=== PATIENT | female | born 1970 | race Caucasian/White ===

== ENCOUNTER 2018-12-07 12:34 | Inpatient (IN) | payer BC, SELFPAY ==
--- NOTE | 2018-11-28 18:15 | HP.PCM_ITS ---
History and Physical Date of Admission: 12/07/18 Pre-Op History and Physical ? HPI: The patient is a 48 year old female presenting for pre-operative visit. She is scheduled for , for?TLH, bilateral salpignectomy, cystoscopy, possible lysis of adhesions, possible laparatomy on?12/07/18. ??Procedure discussed along with risks, benefits and complications. ?Other alternatives discussed for management. Consent form signed??Yes.? PAST?MEDICAL?HISTORY PAST MEDICAL HISTORY Diagnosis Date ? Acute gastritis without mention of hemorrhage ? ? Ankle fracture, right ? ? with 4 surgeries and fusion ? Anxiety ? ? Arthritis associated with another disorder ? ? Crohn's Disease, seeing Dr. Bunn-rheum, Dr. Gonzalez-pain mgmt ? Crohn disease (HCC) ? ? Seeing Dr. Pinedo ? Dysthymic disorder ? ? Depression (non-psychotic) ? Hypothyroidism ? ? Insomnia ? ? Migraines ? ? Obesity (BMI 30-39.9) ? ? Peptic ulcer, unspecified site, unspecified as acute or chronic, without mention of hemorrhage, perforation, or obstruction ? ? Psoriasis ? ? [facility] ? Regional enteritis of large intestine (HCC) 08/25 ? colectomy, and redo: ?ophth manifestation ? Vitamin D deficiency ? ? ? PAST?SURGICAL?HISTORY PAST SURGICAL HISTORY Procedure Laterality Date ? DELIVERY ONLY ? 1990 ? , low cervical ? DELIVERY ONLY ? 1994 ? , low cervical ? DELIVERY ONLY ? 1996 ? , low cervical ? EGD W/O BRSH SPECIMEN W/BX ? 03/27/2008 ? Gastric ulcers, deodenal adenoma ? FUSION OF ANKLE JOINT ? 2010 ? [facility] ? LAPAROSCOPIC CHOLEYCYSTECTOMY ? 2000 ? Cholecystectomy, lap ? LIGATE FALLOPIAN TUBE ? ? ? Tubal ligation ? PAST SURGICAL HISTORY OF ? 2000, 2001, 2008 ? multiple surgeries, eventual RIGHT ANKLE FUSION (post-traumatic) ? PROCTECTOMY,COMPL,COLECTOMY,BX'S ? 08/25 ? revision May 2001; reanastomosis 2001 - ileorectal ? SIGMOIDOSCOPY FLEX DIAG ? 2006 ? Normal or clean anastamosis ? THERMAL ENDOMETRIAL ABLATION ? 01/02/09 ? Novasure ? ? CURRENT?MEDICATIONS Current Outpatient Medications Medication Sig Dispense Refill ? esomeprazole (NEXIUM) 40 mg capsule TAKE ONE CAPSULE BY MOUTH EVERY DAY IN THE MORNING AT 6AM 90 capsule 3 ? ZOLMitriptan (ZOMIG) 2.5 mg tablet Take 1 tablet by mouth as needed. Take 1 tablet at onset of headache, repeat in 2 hours 6 tablet 3 ? venlafaxine ER (EFFEXOR XR) 150 mg 24 hr capsule Take 1 capsule by mouth once daily. 90 capsule 1 ? levothyroxine (SYNTHROID) 75 mcg tablet Take 1 tablet by mouth daily before breakfast. 30 tablet 2 ? ondansetron orally disintegrating (ZOFRAN ODT) 4 mg disintegrating tablet Take 1 tablet by mouth every 8 hours as needed. 20 tablet 3 ? inFLIXimab (REMICADE) 100 mg injection Inject 517.5 mg intravenously one time only for 1 dose. Infuse 7.5 mg/kg (adjusted weight) every 6 weeks. 500 mg 5 ? buPROPion XL (WELLBUTRIN XL) 300 mg 24 hr tablet Take 1 tablet by mouth once daily. 90 tablet 3 ? traZODone (DESYREL) 100 mg tablet TAKE 1/2 TO 1 TABLET BY MOUTH ONCE AT BEDTIME ? 3 ? clobetasol (TEMOVATE) 0.05 % cream APPLY 1 APPLICATION TO AFFECTED AREA TWICE DAILY. 30 g 1 ? HYDROcodone-Acetaminophen (NORCO) 10-325 mg per tablet Take 1 tablet by mouth every 8 hours as needed. ? ? ? No current facility-administered medications for this visit.? ? ALLERGIES:?Compazine [Prochlorperazine Edisylate]; Imitrex [Sumatriptan Succinate] ? PERSONAL HISTORY:? 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 FAMILY HISTORY:? FAMILY?HISTORY FAMILY HISTORY Problem Relation Age of Onset ? GI Mother ?hep C; from overdose, drug abuse ? Alcohol/Drug Mother ? from overdose ? GI Father ?hep C ? Hypertension Father ? ? Alcohol/Drug Father ? ? Coronary Artery Disease Maternal Grandmother ?open heart, no details known ? Alcohol/Drug Maternal Grandfather ? ? Hypertension Paternal Grandfather ? ? Coronary Artery Disease Paternal Grandfather ? age 62, many IN's prior to this ? REVIEW OF SYMPTOMS: GENERAL: denies fevers or chills ENDOCRINOLOGY: has not been on steroids Cardiology : denies palpitations or chest pain Respiratory: denies SOB or cough Hematology: denies history of prolonged bleeding or easy bruising or VTE Allergy: Denies history of personal or family history of allergy to anesthesia ? ? PELVIC EXAM FROM 08/29/18: :?external genitalia normal, normal Bartholin's glands, urethra, Shelbina's glands, no vulvar lesions, no cervical lesions, good vaginal support, physiologic discharge present, normal appearing perineal body and perianal region BIMANUAL:?small, mobile uterus, nontender, no adenexal masses or tenderness ? ?EMB- attempted 08/29/18- benign but limited, previous ablation ? ? Pelvic US 10/03/18: Report Summary: Overall impression: uterus normal size with globular appearing contour. endometrial thickness is 7.0mm. No endometrial lesions appreciated. Right and left ovary subvisualized no free fluid. Follow- up: f/u as clinically indicated. Indication: Menorrhagia. History: Last menstrual period: 09/24/2018. 10th day of cycle. Gynecological History: Past gynecological operations: ablation x2. Gynecological Ultrasonography: Uterus: normal, anteverted. Size: Longitudinal 81 mm. Anterio- posterior 46 mm. Transverse 51 mm. Volume: 99.5 ?ml. Fibroids: Fibroid 1: Size: 19 mm x 20 mm x 21 mm. Type: anterior. Position: mid-uterus. Endometrium: endometrium clearly visualized. Endometrium thickness total: 7.0 mm. Right Ovary: subvisualized. Left Ovary: subvisualized.? ? ? PHYSICAL EXAMINATION: ? VITALS:?Height 5' 1.25 (1.556 m), weight 218 lb (98.9 kg), last menstrual period 10/30/2018. ? GENERAL:??The patient is well nourished, well hydrated in no acute distress. ?, The patient is oriented to time, place, and person. NECK:?Supple. No lynphadenopathy, normal thyroid, no thyromegaly. LUNGS:?Clear to auscultation bilaterally. no wheezes, rhonchi or rales HEART:?Regular rate and rhythm, Normal heart sounds and No murmurs or gallops ? IMPRESSION:?menorrhagia, s/p endometrial ablation, dysmenorrhea ? PLAN:???The risks/benefits/alternatives and personal involved for the planned?TLH, bilateral salpingectomy, cystoscopy, possible lysis of adhesions and laparatomy (dr. Tao from general surgery on standby)?were reviewed with the patient. Her questions were answered to her satisfaction and she desires to proceed. ?Consent was signed. ?I reviewed with her postop instructions and expectations. ? ? I have reviewed and updated past medical and surgical history, medications and allergies? This H&P completed in my office 11/28/18 Amita Overton M.D.
[2018-12-07] VITALS (13 sets, daily range): BP systolic 85–135; BP diastolic 46–86; PULSE 68–99; RESP 16–18; TEMP 36.2–37.2; O2SAT 92–100; BMI 41.9; BMI 41.5
[2018-12-07 06:42] LABS: Hematocrit 35.6 % (37-47); Mean Corp Hgb Conc 30.9 g/gl (32-36); Mean Corpuscular Hgb 26.3 pg (27.0-32.0); Mean Platelet Vol. 9.2 fl (6.2-12.0); Platelet Count 348 K/mm3 (150-450); RBC Distribution Width CV 14.1 % (11.6-14.6); RBC Distribution Width SD 43.7 fl (35.1-43.9); Red Blood Count 4.19 M/mm3 (4.2-5.4); White Blood Count 5.9 K/mm3 (4.4-11.0)
[2018-12-07 06:43] LABS: Scan Indicated on CBC? Y/N NO
[2018-12-07 06:45] LABS: Bedside Glucose 183 mg/dL (70-110)
[2018-12-07] MEDS: Celecoxib 200 MG Capsule 400 MG PO (06:50)
[2018-12-07] MEDS: Gabapentin 600 MG Tablet PO (06:50)
[2018-12-07] MEDS: Acetaminophen 500 MG Tablet 1000 MG PO ×3 (06:51→23:06)
[2018-12-07] MEDS: Phenazopyridine 95 MG Tablet 190 MG PO (06:51)
[2018-12-07] MEDS: Scopolamine 1mg/72hr Patch 1 PATCH TRANSDERM. (06:52)
[2018-12-07] MEDS: Magnesium Sulfate 4gm/100mL 4 GM/100 ML IV.SOLN. IV (06:53)
[2018-12-07] MEDS: Lactated Ringers 1,000 ML 40 ML IV (06:53)
[2018-12-07] MEDS: Insulin Lispro 100 UNIT/ML INSULN.PEN SC (06:54)
[2018-12-07 06:59] LABS: Thyroid Stim Hormone (TSH) 1.57 uIU/mL (0.358-3.74)
[2018-12-07] MEDS: dexAMETHasone 10 MG/ML Vial 8 MG IV (07:46)
--- NOTE | 2018-12-07 08:00 | HYST_PTH ---
PATIENT: LÓPEZ DEMPSEY LOC: [facility]3 U#:[id number] AGE/SX: 48/F ROOM: MS312 RE12/07/[address]: Dr. Amita Overton MD : 1970 BED: 1 DIS: 12/08/2018 SPEC #: [id number] RECD: 12/07/18 12:42 STATUS: CANDACE RERobert #: [id number] SIVA: 12/07/18 08:[address]: Amita Overton DEPT: SURGICAL PATHOLOGY RECD BY: Lexa Christian ENTERED: 12/07/18 13:53 SP TYPE: HYSTERECT OTHR DR: Dr. Travis Washington MD Tissues: Uterus, NOS Procedures: Surgery Specimen Level V HEADER OPERATION: Laparoscopic hysterectomy, bilateral salpingectomy PRE-OP DIAGNOSIS: Menorrhagia, status post endometrial ablation, dysmenorrhoea TISSUE SUBMITTED: Uterus, cervix, bilateral fallopian tubes MICROSCOPIC DIAGNOSIS Uterus, hysterectomy: Cervix - nabothian cyst and minimal chronic inflammation. Endometrium - transition endometrium. Myometrium - adenomyosis. Right and left fallopian tubes - benign paratubal cysts. AM:nadeem 12/08/18 MICROSCOPIC DESCRIPTION Slides are reviewed. GROSS DESCRIPTION Received in fixative is one container labeled with the patient's name and designated uterus. The specimen consists of a uterus with detached cervix and one detached fallopian tube and portion of second detached fallopian tube. The uterus with cervix measures 8.5 x 6.5 x 4 cm and weighs 89 gm. The endocervical canal measures 3.5 cm in length. The ectocervix is oval and grossly unremarkable. The triangular endometrial cavity measures 3.5 x 2.8 cm. The endometrium measures up to 0.2 cm in thickness and light cole in color. The myometrium measures 2 cm in average thickness and is free of mass lesions. The longer fallopian tube segment measures 6 cm in length and 0.6 cm in average diameter and contains a normal appearing fimbriated end. The smaller fragment of fallopian tube measures 2 cm in length and 0.8 cm in average diameter. Manual Lathe Operator sections are submitted in eight cassettes as follows: 1 & 2 - cervix/endocervix, 3-6 - endometrium/myometrium, 7 - longer fallopian tube, 8 - smaller fallopian tube, sectioned and totally submitted. / AM:nadeem 12/07/18 TC:5 CPT: 64057
[2018-12-07] MEDS: Cefazolin 2 GM in 0.9% Normal Saline 100 ML IV (08:23)
--- NOTE | 2018-12-07 11:20 | PCM.OPRPT ---
Report of Operation Date of Procedure: 12/07/18 Pre-Operative Diagnosis: dysfunctional uterine bleeding, multiple previous abdominal surgeries including subtotal colectomy, concern for access and intraoperative adhesions Post-Operative Diagnosis: essentially bleeding, adhesions of loop of small bowel to abdominal midline and adhesions to uterus and ovaries Surgery/Procedure Performed:: laparoscopic access using an open technique-Conner trocar, laparoscopic lysis of adhesions teacher tutor: None Type of Anesthesia:: General Specimen's removed: per Dr. Overton Drains: per Dr. Overton Estimated Blood Loss (mL): per Dr. Chavez Description of Procedure: The patient was brought to the operating suite. Sign in was performed verifying patient, site, procedure, position, and DVT prophylaxis with SCDs. Following induction of general anesthetic, the patient was positioned by the gynecologic service for laparoscopic-assisted vaginal hysterectomy.. The patient?s abdomen was prepped and draped in the usual fashion. Timeout was performed verifying patient, site, position. Dr. Overton placed uterine manipulator. Following this- Local anesthetic was injected above the level of the umbilicus. Incision made and dissection carried down to the umbilical root fascia. through the umbilicus was grasped with the Victoria. 2 stay sutures were placed. Incision made in the fascia. dissection was further continued and the posterior fascial was grabbed with 2 Wanda's. Dissection was continued and the peritoneum entered under direct visualization. A 10 mm Conner trocar was inserted and secured with the stay sutures. Pneumoperitoneum to 15 mmHg was insufflated. 5mm ports were placed 2 on the left side one on the right side. Visual inspection revealed an adhesed loop of small bowel to the midline with relatively dense adhesions. Below this there was approximately estimated be a 6 x 8 cm incisional hernia. Laparoscopic lysis of adhesions were undertaken. the loop of small bowel was taken down carefully and sharply. There were noted to be significant adhesions betweenthen between the uterus and ovaries and the lower pelvic small bowel. These adhesions were taken down sharply and using electrocautery between the uterus and the ovary and fallopian tubes to the point that Dr. Overton was satisfied there was appropriate dissection to perform her procedure. the remainder of the case will be dictated by Dr. Overton.
[2018-12-07] MEDS: Bupivacaine Mpf 0.5% 30 ML VIAL (11:50)
[2018-12-07 12:36] LABS: Bedside Glucose 124 mg/dL (70-110)
[2018-12-07 15:13] LABS: Hematocrit 34.3 % (37-47); Hemoglobin 10.7 g/dl (12.0-15.0); Mean Corp Hgb Conc 31.2 g/gl (32-36); Mean Corpuscular Hgb 26.2 pg (27.0-32.0); Mean Corpuscular Volume 83.9 fL (81-99); Mean Platelet Vol. 9.2 fl (6.2-12.0); Platelet Count 348 K/mm3 (150-450); RBC Distribution Width CV 13.9 % (11.6-14.6); RBC Distribution Width SD 42.4 fl (35.1-43.9); Red Blood Count 4.09 M/mm3 (4.2-5.4); White Blood Count 15.3 K/mm3 (4.4-11.0)
[2018-12-07 15:14] LABS: Scan Indicated on CBC? Y/N NO
--- NOTE | 2018-12-07 15:28 | PCM.OPRPT ---
Report of Operation Date of Procedure: 12/07/18 Pre-Operative Diagnosis: Menorrhagia, suspected adenomyosis, history of previous bowel surgeries and suspected intraperitoneal adhesions Post-Operative Diagnosis: Menorrhagia, adenomyosis, adhesions of the bladder to the anterior lower uterine segment, extensive peritoneal adhesions Surgery/Procedure Performed:: Laparoscopic assisted vaginal hysterectomy with bilateral salpingectomy and cystoscopy. See Dr. Nazario's note for his portion of the surgery (lysis of adhesions) Description of Surgical Findings:: Adhesions of the small bowel to the anterior abdominal wall, midline lower abdominal wall hernia, boggy uterus. Normal cervix and vagina. Normal-appearing tubes with evidence of previous tubal ligation. Normal-appearing ovaries. Extensive adhesions to the uterus and of the left tube and ovary to bowel and sidewall. Some adhesions of the right ovary to the sidewall. Very dense extensive adhesions of the lower uterine segment to the bladder flap green material value added assessor: Marissa Golden Type of Anesthesia:: General Special Medications: None Specimen's removed: Uterus, cervix, bilateral tubes Drains: Florez Estimated Blood Loss (mL): 500 Fluids Replaced: 2200 Description of Procedure: the patient was taken to the operating room where she was prepped and draped in dorsal lithotomy position. Her legs are placed in the yellowfin stirrups. Her arms were tucked at her sides. The heavy vac was used to secure the patient in place. Care was taken to put gel pads and foam under all pressure points and the patient was in a neurologically safe in neutral position. A weighted speculum was placed in the vagina. The cervix was very high and anterior. The cervix was grasped with a tenaculum. I attempted to dilate the cervix and can only enter the cervix proximally 4 cm. I attempted to use a sound to even perforate the uterine fundus in order to allow deeper placement of the uterine manipulator, but I was unable to safely do so. At the uterine manipulator in the 4 cm and secured it to the cervix. The ELIESER cup uterine manipulator was used- small. A Florez had been placed to straight drain. Attention was then turned to the abdomen. Dr. Tao did an open technique to place a Conner trocar that was 10 mm 1 cm above the umbilicus. intraperitoneal placement was confirmed and the pneumoperitoneum was created. The patient was placed in Trendelenburg. 2 left-sided and one right sided lateral ports were placed under direct visualization without difficulty. The rapid insufflator was used. There are large amount of adhesions that were taken down by Dr. Tao. He will dictate his operative report separately. the round ligaments were identified, grasped with the LigaSure device, sealed and transected. The antimesenteric portions of the tube on both sides were identified, clamped, sealed and transected with the LigaSure device. The portions of the tubes were removed. The utero-ovarian ligaments were clamped, sealed, and transected. There was some backbleeding from the uterus. This was clamped and sealed to the best of our ability. There were some adhesions especially along the right side of the uterus, and these were taken down carefully. Attempt was then made to take down the very dense adhesions of the bladder flap and anterior peritoneum to the lower uterine segment. Blunt and sharp dissection were used. Monopolar cautery was used to take some of the adhesions down. The bladder was then backfilled to better define the planes. Some more dissection was performed. The bladder was drained and the remainder of the dissection was completed. When the bladder flap was down adequately, the uterine arteries were skeletonized, clamped, sealed and transected. At this point, I did not feel that we could adequately manipulate the uterus and visualize the cervicovaginal junction enough to safely make the colpotomy incision laparoscopically. Decision was made to proceed vaginally. Weighted speculum was placed in the vagina and the cervix is grasped with a tenaculum. The vaginal epithelium overlying the cervix was infiltrated with Xylocaine with dilute epinephrine solution. An incision was made around the cervix and the posterior colpotomy incision was made with Singh scissors. The peritoneum was tagged to the vaginal cuff and a long weighted speculum was placed in this area. The anterior colpotomy incision was then made. I then clamped, transected and suture ligated the uterosacral ligaments. a second pedicle of the lower portion of the cardinal ligament was clamped, transected and suture ligated. The vagina was very narrow and made manipulation difficult. At this point, part of the cervix evulsed. This is likely because of where we had done the dissection anteriorly had attenuated the tissue. because of the limited vaginal access, we had returned laparoscopically to finish taking down the rest of the cardinal ligament with the LigaSure device. There had been some significant back bleeding during this portion of the case adn from the vaginal cuff. The uterus was then removed vaginally without difficulty. The vaginal cuff was reapproximated in a horizontal fashion with interrupted 0 Vicryl [id number] sutures and was hemostatic. Care was taken to support the cuff to the uterosacral ligaments. a cystoscopy was then performed in the usual sterile fashion. The bladder was intact and both ureteral jets were noted. Attention was then turned abdominally one more time, and there is some generalized oozing in the vaginal cuff area. Several areas were clamped and sealed with the LigaSure device. However when we remove the LigaSure device seem to stick to the tissue somewhat and some oozing would continue. Most of the oozing was near the midline and there was concern of compromising the sutures or thermal injury to the bladder area. There were no actively bleeding vessels. Decision was made to put some FloSeal on the area and the peritoneum was tented over it and pressure held to the best of our ability for 2 minutes. At this point there was no active bleeding. the excess FloSeal was gently irrigated and suctioned off. The pelvis and peritoneal cavity were cleared of any clots and debris to the best of our ability. Kailey was placed over the remaining peritoneal surfaces, and the abdominal pressure was decreased to 8. At this pressure, there is no active bleeding through the Kailey or the FloSeal and hemostasis was assured. the laparoscopic instruments were removed. The pneumoperitoneum was released. The fascia in the midline and incision was closed with 0 Vicryl suture in a running fashion. The skin incisions were then closed by Dr. francisco well with Monocryl suture and skin glue. the vaginal instruments were removed by me and I perform the vaginal suite. I performed the remainder the procedure with assistance. Sponge and needle counts were correct and the patient was taken to the recovery room in stable condition. Grafts/Implants Used: none - Complications none - Admit VTE Documentation VTE Present on Admission: No VTE Mechan Device Prophylaxis: SCD's VTE Pharm Prophylaxis ordered?: Yes
[2018-12-07] MEDS: Ketorolac 30 MG/ML Syringe IV ×2 (15:39→23:06)
[2018-12-07] MEDS: oxyCODONE 5 MG Tablet PO (18:39)
--- NOTE | 2018-12-07 21:25 | NURSING ---
pt ambulating in hercules multiple times with gait steady. provided and encouraged gum chewing to pt.
[2018-12-07] MEDS: Docusate Sodium 100 MG Capsule PO (21:33)
[2018-12-07] MEDS: traZODone 50 MG Tablet PO (21:33)
[2018-12-07] MEDS: 0.9% NaCl Peripheral Flush Adult/Peds IV (23:06)
[2018-12-08] MEDS: oxyCODONE 5 MG Tablet PO ×2 (03:29→09:05)
[2018-12-08] MEDS: 0.9% NaCl Peripheral Flush Adult/Peds IV ×3 (03:30→12:07)
[2018-12-08 03:37] VITALS: BP 126/55; PULSE 87; RESP 16; TEMP 36.8; O2SAT 93
[2018-12-08] MEDS: Levothyroxine 75 MCG Tablet PO (05:19)
[2018-12-08] MEDS: Ketorolac 30 MG/ML Syringe IV ×2 (05:19→12:07)
[2018-12-08] MEDS: Acetaminophen 500 MG Tablet 1000 MG PO ×2 (05:19→12:08)
[2018-12-08 06:39] LABS: Hematocrit 31.7 % (37-47); Mean Corp Hgb Conc 31.5 g/gl (32-36); Mean Corpuscular Hgb 26.4 pg (27.0-32.0); Mean Corpuscular Volume 83.6 fL (81-99); Mean Platelet Vol. 9.7 fl (6.2-12.0); Platelet Count 374 K/mm3 (150-450); RBC Distribution Width CV 14.1 % (11.6-14.6); Red Blood Count 3.79 M/mm3 (4.2-5.4); White Blood Count 11.7 K/mm3 (4.4-11.0)
[2018-12-08 06:54] LABS: Scan Indicated on CBC? Y/N NO
--- NOTE | 2018-12-08 07:09 | PCM.PN.SRG ---
Subjective: few bowel sounds, no flatus - Physical Exam Abdomen: Soft, Hypoactive Bowel Sounds Vital Signs Temp Pulse Resp BP Pulse Ox 98.3 F 87 16 126/55 H 93 12/08/18 03:37 12/08/18 03:37 12/08/18 03:37 12/08/18 03:37 12/08/18 03:37 Oxygen Flow Rate (L/min) 6 Oxygen Delivery Method Room Air Weight: 100.698 kg Body Mass Index (BMI) 41.5 Intake and Output for Last 24 Hours 12/06/18 12/07/18 12/08/18 23:59 23:59 23:59 Intake Total 3646 / 3646 761 / 761 Output Total 1800 / 1800 1050 / 1050 Balance 1846 / 1846 -289 / -289 Laboratory Tests Past 24 Hrs 12/07/18 12/07/18 12/08/18 06:26 15:05 05:50 WBC 15.3 H 11.7 H RBC 4.09 L 3.79 L Hgb 10.7 L 10.0 L Hct 34.3 L 31.7 L MCV 83.9 83.6 MCH 26.2 L 26.4 L MCHC 31.2 L 31.5 L RDW 13.9 14.1 RDW Differential 42.4 42.0 Plt Count 348 374 MPV 9.2 9.7 Blood Type A NEGATIVE Antibody Screen NEGATIVE POC Glucose 12/07/18 12:33 POC Glucose 124 H Medical Necessity - Tobacco Use Smoking Status: Former smoker Tobacco Use: Cigarettes Assessment/Plan postoperatively #1 status post lysis of adhesions and laparoscopic assisted vaginal hysterectomy discussed with patient would be careful with clear liquids until improved bowel function and passing flatus. Patient doing well clinically. Discussed incisional hernia and plans for future repair.
[2018-12-08 07:14] VITALS: O2SAT 91
--- NOTE | 2018-12-08 08:34 | PCM.PN.OB ---
Subjective: Pain well controlled. Minimal vaginal bleeding. Still has her Florez in. Tolerating regular diet and adequate fluids. No new complaints this morning - Physical Exam General: Alert, Cooperative, No apparent distress Abdomen: Soft, Non-Distended, Tender - Mildly, appropriately Skin: Incision - Incisions are clean dry and intact with skin glue. Vital Signs Temp Pulse Resp BP Pulse Ox 98.3 F 87 16 126/55 H 93 12/08/18 03:37 12/08/18 03:37 12/08/18 03:37 12/08/18 03:37 12/08/18 03:37 Oxygen Flow Rate (L/min) 6 Oxygen Delivery Method Room Air Weight: 100.698 kg Body Mass Index (BMI) 41.5 Intake and Output for Last 24 Hours 12/06/18 12/07/18 12/08/18 23:59 23:59 23:59 Intake Total 3646 / 3646 761 / 761 Output Total 1800 / 1800 1050 / 1050 Balance 1846 / 1846 -289 / -289 Laboratory Tests Past 24 Hrs 12/07/18 12/08/18 15:05 05:50 WBC 15.3 H 11.7 H RBC 4.09 L 3.79 L Hgb 10.7 L 10.0 L Hct 34.3 L 31.7 L MCV 83.9 83.6 MCH 26.2 L 26.4 L MCHC 31.2 L 31.5 L RDW 13.9 14.1 RDW Differential 42.4 42.0 Plt Count 348 374 MPV 9.2 9.7 POC Glucose 12/07/18 12:33 POC Glucose 124 H Medical Necessity - Tobacco Use Smoking Status: Former smoker Tobacco Use: Cigarettes Assessment/Plan Postoperative day #1 status post laparoscopic assisted vaginal hysterectomy with bilateral salpingectomy and cystoscopy. Mild acute blood loss anemia is appropriate for blood loss during surgery. Patient is tolerating this well. DC Florez this morning and if passes voiding trial, meets discharge criteria. Pathology is pending. Reviewed operative findings and course. Routine prescriptions and instructions.
--- NOTE | 2018-12-08 08:41 | DCINST_ITS ---
Discharge Diet: No Restrictions Discharge Activity: Return to Normal Activity, May Not Drive - while taking narcotic pain medications., May Shower May resume sexual activity in: 6-8 weeks Call your doctor if your incision/area has: Continuous Slow Oozing, Sudden Increased Bleeding, Increased Pain/ Swelling, Increased Redness, Foul Smelling Discharge Call your doctor if you observe: Fever of 101 or Higher, Inability to urinate, Inability to have a bowel movement, Using more than one pad per hour, - - Your incisions have skin glue, it can get wet. Please leave the skin glue on until it falls off Cleanse incision/area with: Soap & Water Additional Instructions: Take your ibuprofen and Tylenol regularly. Hold your hydrocodone for now and use the oxycodone as needed for breakthrough pain. When your postoperative pain has resolved, resume your hydrocodone as needed. Allergies/Adverse Reactions: Allergies prochlorperazine [From Compazine] Allergy (Verified 11/30/18 13:23) Other FACIAL PARALYSIS Medications to take at Discharge Bupropion HCl [Bupropion Xl] 300 mg PO DAILY 11/30/18 Esomeprazole Mag Trihydrate [Nexium] 40 mg PO DAILY 11/30/18 Hydrocodone/Acetaminophen [Hydrocodone-Acetamin 10-325 mg] 1 each PO TID PRN PRN 11/30/18 Infliximab [Remicade] mg IV X1 11/30/18 Levothyroxine [Synthroid] 75 mcg PO DAILY 11/30/18 Trazodone HCl 50 mg PO QHS 11/30/18 Venlafaxine XR [Effexor Xr] 150 mg PO DAILY 11/30/18 Ibuprofen [Motrin] 600 mg PO Q6H PRN #60 tablet 12/08/18 Oxycodone [Oxyir] 5 - 10 mg PO Q6H PRN PRN 4 Days #14 tablet 12/08/18 The following prescriptions were given: Oxycodone [Oxyir] 5 - 10 mg PO Q6H PRN PRN 4 Days #14 tablet PRN Reason: Breakthrough Pain (>4/10) Ibuprofen [Motrin] 600 mg PO Q6H PRN #60 tablet PRN Reason: Pain Primary Care Physician: Travis Washington MD [Primary Care Provider] - Test Results: Test results from this visit will be discussed in further detail at your follow- up appointment, if applicable. Please Follow Up With: Amita Overton MD - [phone] When: 1-2 and 6 weeks or as needed Please Follow Up With: Dennis Tao MD - [phone] When: as needed for abdominal hernia
[2018-12-08 09:00] VITALS: BP 137/53; PULSE 70; RESP 18; TEMP 36.7; O2SAT 97
[2018-12-08] MEDS: buPROPion (XL) 300 MG TABLET.XL PO (09:06)
[2018-12-08] MEDS: Docusate Sodium 100 MG Capsule PO (09:06)
[2018-12-08] MEDS: Pantoprazole Sodium 40 MG Tablet PO (09:07)
[2018-12-08] MEDS: Enoxaparin 40 MG/0.4 ML Syringe SC (09:07)
[2018-12-08] MEDS: Venlafaxine XR 150 MG Capsule PO (09:07)
--- NOTE | 2018-12-08 09:20 | CASEMGMT ---
RN ROSIE Face to Face with patient for initial transition planning/care coordination assessment. RN CM introduced self and role at [facility]. Patient lying in bed, alert and oriented. Patient willing to participate in assessment and is able to answer all questionsappropriately. Care providers, pharmacy, and demographics verified. Patient wishes to discharge home, denies need for home health at this time. Patient states she has no further needs or concerns at this time. CM to follow for discharge planning needs thatmay arise. PCP: Padmini Specialists: NEGIN Overton Preferred Pharmacy: [facility] Insurance: [place] Prescription Benefit: yes Living Will/HPOA: yes, Ángel Wilson LNOK: Living Arrangements: Patient lives with in 2 story home, able to navigate stairs, bed and bath available on first floor. Transportation: self/ DME/HHC: Patient denies any DME or previous HHC. Disposition Plan: Patient to discharge home with family support and follow-up plans in place. Shalini CONROY, RN, CM
[2018-12-08 12:14] VITALS: BP 155/87; PULSE 83; RESP 16; TEMP 36.8; O2SAT 96
== END 2018-12-08 12:22 | disposition home or self-care (01) | DRG 742 ==
LOC: SDC 13:04 → MS3 12-08 08:09
PROVIDERS: Anesthesiology; Admitting Provider Obstetrics & Gynecology; Family Provider Family Medicine; PCP Family Medicine; Referring Provider Obstetrics & Gynecology; Visit Provider Obstetrics & Gynecology
PROC: 0UT94ZZ Resection of Uterus, Percutaneous Endoscopic Approach (ICD-10-PCS; principal; 2018-12-07 07:40)
DX: N92.0 Excessive and frequent menstruation with regular cycle (principal); D62 Acute posthemorrhagic anemia; Z68.41 Body mass index [BMI] 40.0-44.9, adult; N80.0 Endometriosis of uterus; N73.6 Female pelvic peritoneal adhesions (postinfective); E66.9 Obesity, unspecified
CPT/HCPCS: 36415; 82962; 84443; 85027; 86850; 86900; 88307; J7120; A4216; J2405

== ENCOUNTER 2022-09-20 10:55 | Emergency (ER) | payer BC, SELFPAY ==
[2022-09-20 10:55] VITALS: BP 123/61; PULSE 92; RESP 14; TEMP 36.2; O2SAT 100; BMI 29.8
--- NOTE | 2022-09-20 12:25 | EDS_ITS ---
HPI History of Present Illness HPI Narrative: Left index finger laceration within the last couple hours. Tetanus up-to-date. Patient is right-hand dominant. Chief Complaint: Laceration Informant: patient Occured/Mechanism Mechanism/Context: Yes injury Onset/Context/Timing Onset: Today and Hours Context: Sudden Onset Timing: Continuous Current Severity: Mild Maximum Severity: Mild Narrative Narrative: 51-year-old female history of Crohn's disease. Was using a delicate fabrics presser and excellently cut her left index finger between the PIP and DIP joints on the palmar aspect of the mid phalanx. No other injuries. She is right-hand dominant. Believes her tetanus is up-to-date. Tetanus Immunization: <5 years Prior similar symptoms: No Recent Illness/Hospitalization: No PFSH PFSH Medical History CD (Crohn's disease) Depression Hypothyroid Home Medications bupropion HCl 300 mg 24 hr tablet, extended release 300 mg PO DAILY DEPRESSION 11/30/18 [History Last Taken Unknown] esomeprazole magnesium 40 mg capsule,delayed release (Nexium) 40 mg PO DAILY GERD 11/30/18 [History Last Taken 12/07/18] hydrocodone 10 mg-acetaminophen 325 mg tablet 1 ea PO TID PRN PRN Pain 11/30/18 [History Last Taken Unknown] infliximab 100 mg intravenous solution (Remicade) mg IV X1 crohns 11/30/18 [History Last Taken Unknown] levothyroxine 75 mcg tablet 75 mcg PO DAILY HYPOTHYROID 11/30/18 [History Last Taken 12/07/18] trazodone 50 mg tablet 50 mg PO QHS SLEEP 11/30/18 [History Last Taken Unknown] venlafaxine 150 mg capsule,extended release 24 hr 150 mg PO DAILY DEPRESSION 11/30/18 [History Last Taken Unknown] ibuprofen 600 mg tablet 600 mg PO Q6H PRN Pain ##60 12/08/18 [Rx Last Taken Unknown] Allergy/AdvReac Type Severity Reaction Status Date / Time prochlorperazine Allergy Other Verified 09/20/22 10:56 [From Compazine] Surgical History H/O gastric sleeve Social History Smoking Status: Former smoker ROS ROS ED ROS Narrative No recent illness. Review of Systems ROS Unobtainable: Denies due to encephalopathy Constitutional Constitutional ED: Denies chills or fever(s) Eyes Eyes: Denies blurry vision ENT ENT ED: Denies ear pain Cardiovascular Cardiovascular: Denies chest pain Respiratory/Chest Respiratory/Chest: Denies cough or dyspnea Gastrointestinal Gastrointestinal: Denies abdominal pain Genitourinary Genitourinary ED: Denies dysuria or hematuria Musculoskeletal Musculoskeletal: Denies back pain Integumentary Denies abscess or Abrasions Neurologic Neurologic: Denies headache(s) Psychiatric Psychiatric: Denies anxiety or depression Endocrine Endocrinology: Denies cold intolerance Hematologic/Lymphatic Hematologic/Lymphatic: Denies easy bleeding Allergic/Immunologic Allergic/Immunologic ED: Denies mouth swelling EXAM Physical Exam Narrative Exam Narrative: 49-year-old female no acute distress. Vital signs stable afebrile. Exam normal except left index finger on the palmar aspect between the PIP and DIP joints on the soft tissue of the mid phalanx there is about a 1 inch laceration on the skin and subcu tissue. It is horizontal. She has full flexion extension of the left index finger. Normal cap refill. Normal touch sensation. No foreign body. No signs of infection. No tendon laceration. Mild oozing of blood. Locally anesthetized with lidocaine. Cleaned with Shur-Clens. Washed and irrigated with saline. Explored. Closed using 3 simple interrupted 5-0 Ethilon sutures. Proper hemostasis wound closure is obtained. Patient tolerated procedure well. Const Vital Signs: 09/20/22 10:55 Temperature 97.2 F L Temperature Source Temporal Pulse Rate 92 Respiratory Rate 14 Blood Pressure 123/61 H Blood Pressure Mean 81 Pulse Ox 100 Oxygen Delivery Method Room Air Positive well nourished and well developed; Negative for obese, cachectic, contractures or unkempt General Appearance ED: well developed and NAD; Negative for unkempt, cachectic, contractures, cyanotic or diaphoretic Nutritional Appearance: Negative for cachectic or obese HEENT Reports moist mucous membranes normocephalic and atraumatic; Negative for trauma or tenderness Eyes PERRL and EOMs intact bilaterally General Eye ED: Negative for other Neck full ROM and supple General: Negative for tenderness Lymph Lymphatic: Negative for other Chest Wall inspection of chest normal and palpation of chest normal Resp normal respiratory effort and clear to auscultation bilaterally Effort and Inspection: Negative for pain with movement Auscultation: Negative for rales, rhonchi or wheezes Cardio regular rate, regular rhythm, S1 normal heart sound, S2 normal heart sound and no murmurs Rate: Negative for bradycardia or tachycardic Rhythm: Negative for abnormal rhythm GI non-tender, non-distended and no masses Inspection: Negative for abdominal distention Auscultation: normoactive bowel sounds Palpation: soft; Negative for tender or guarding Extremity normal to inspection and full ROM Extremity Narrative: Except left index finger laceration. Horizontal. Mid phalanx. Volar skin and subcu tissue. No bone, joint or tendon involvement. Full flexion extension. Normal touch sensation. Mild bleeding. General Extremety ED: Negative for edema General Extremity: Negative for edema Neuro oriented x3, CN's II-XII intact bilaterally, moves all extremities and no focal motor deficits Sensorium / Orientation: alert, oriented to person, oriented to place and oriented to time; Negative for orientation impaired or lethargic Motor Exam: strength 5/5 throughout Psych mental status grossly normal Appearance: Negative for unkempt Attitude: No agitated Mood & Affect: Negative for depressed, anxious or tearful Skin General Skin Exam: Negative for petechiae Lesions: no lesions Rashes: no rashes Trauma: laceration MDM MDM MDM Narrative Medical decision making narrative: 51-year-old female left index finger laceration needs repaired. Tetanus up-to- date. Procedures Lacerations Left index finger laceration repair:: Length: 1 in Depth: Sub Q Shape: Linear Prep: aCndie Laceration repair: Irrigated and Lidocaine Number of Sutures/[place]: 3 Suture Information: Ethilon, Simple and 4-0 Comment: Left index your laceration. Neurovascular intact. Full range of motion. No foreign body. No infection. Lidocaine local anesthetic. Closed using 3 simple rounds of 4-0 Ethilon sutures. Proper hemostasis and wound closure obtained. Patient tolerated procedure well. Instructed on wound care and suture removal in 10 days. Discharge Plan Triage Chief Complaint: Laceration ED Provider: Jesus Solorzano Dx/Rx/DC Orders Clinical Impression: Laceration of left index finger Instructions: ED Laceration, Hand: All Closures Prescriptions: No Action trazodone 50 MG tablet 50 mg PO QHS venlafaxine 150 MG capsule 150 mg PO DAILY hydrocodone-acetaminophen 1 EACH tablet 1 ea PO TID PRN PRN (Reason: Pain) levothyroxine 75 MCG tablet 75 mcg PO DAILY esomeprazole magnesium [Nexium] 40 MG capsule 40 mg PO DAILY bupropion HCl 300 MG Tab.Er.24h 300 mg PO DAILY infliximab [Remicade] 100 MG/10 ML Vial IV X1 Label Comments: DOSAGE PER [facility] [employer] WORK[employer] EVERY 6 WEEKS Rx Instructions: last dose november 09, 2018 ibuprofen 600 MG tablet 600 mg PO Q6H PRN (Reason: Pain) Qty: 60 1RF Primary Care Provider: Travis Washington Referrals: Travis Washington MD [Primary Care Provider] - 10 Day for suture removal Activity Restrictions/Additional Instructions: Keep clean. Clean daily with soap and water. Tylenol for pain. Stitches out in 10 days. Any signs of infection such as pus, redness, streaks, fever or significant swelling return to have it reevaluated. Disposition Disposition: Home, Self Care
[2022-09-20] MEDS: Lidocaine 1% (20 ml mdv) 20 ML Vial 5 ML INFILT (12:42)
== END 2022-09-20 12:44 | disposition home or self-care (01) ==
PROVIDERS: Emergency Provider Emergency Medicine; PCP Family Medicine; Visit Provider Emergency Medicine
DX: S61.211A Laceration without foreign body of left index finger without damage to nail, initial encounter (principal); W26.8XXA Contact with other sharp object(s), not elsewhere classified, initial encounter; Y93.89 Activity, other specified; Z87.891 Personal history of nicotine dependence
CPT/HCPCS: 12001; 99282

== ENCOUNTER → 2024-03-09 | Outpatient (CLI) | payer BC, SELFPAY ==
[2024-03-09 10:18] LABS: Absolute Lymphocyte Count 1.47 X10^3/uL (0.83-4.51); Absolute Neutrophil Count 2.6 X10^3/uL (2.0-7.7); Basophil# 0.04 X10^3/uL; Basophil% 0.9 % (0-1); Eosinophil# 0.11 X10^3/uL; Eosinophils% 2.4 % (0-5); Hematocrit 40.9 % (37-47); Hemoglobin 13.2 g/dL (12.0-15.0); Lymphocyte # 1.47 X10^3/ul (0.83-4.51); Lymphocyte % 32.1 % (19-41); Mean Corp Hgb Conc 32.3 g/dL (32-36); Mean Corpuscular Hgb 29.1 pg (27.0-32.0); Mean Corpuscular Volume 90.3 fL (81-99); Mean Platelet Vol. 9.6 fl (6.2-12.0); Monocyte# 0.31 X10^3/uL; Monocyte% 6.8 % (0-10); NRBC Flagged by Analyzer 0 % (0-5); Neutrophil # 2.64 X10^3/uL (2.7-7.7); Neutrophil % 57.6 % (47-70); Platelet Count 340 K/mm3 (150-450); RBC Distribution Width CV 12.7 % (11.6-14.6); RBC Distribution Width SD 42.5 fl (35.1-43.9); Red Blood Count 4.53 M/mm3 (4.2-5.4); White Blood Count 4.6 K/mm3 (4.4-11.0)
[2024-03-09 11:12] LABS: AST(SGOT) 28 U/L (15-37); Alanine Aminotransfer ALT/SGPT 33 U/L (13-56); Albumin, Serum 3.6 g/dL (3.2-5.0); Alkaline Phosphatase 65 U/L (45-117); Anion Gap 7 (5-15); BUN 14 mg/dL (7-18); BUN/Creat Ratio 23.9 RATIO (10-20); Bilirubin, Direct 0.11 mg/dL (0.00-0.30); Calcium,Total 9.5 mg/dL (8.5-10.1); Chloride 106 mmol/L (98-107); Cholesterol 221 mg/dL (200); Creatinine, Serum 0.59 mg/dL (0.55-1.02); EST Glomerular Filtration Rate 114 mL/min (>60); Est Glom Filt Rate - Afr Amer 138 mL/min (>60); Globulin 3.6 g/dL (2.2-4.2); Glucose 87 mg/dL (74-106); High Density Lipoprotein 77 mg/dL; Potassium 4.1 mmol/L (3.5-5.1); Protein, Total 7.2 g/dL (6.4-8.2); Sodium Level 140 mmol/L (136-145); Triglycerides 69 mg/dL; Very Low Density Lipoprotein 14 mg/dL (5-40)
[2024-03-09 16:12] LABS: HIV - WCH Non-Reactive (Nonreactive); Hepatitis B Surface Antibody Non-Reactive; Hepatitis B Surface Antigen Non-Reactive (Nonreactive); Hepatitis C Antibody Non-Reactive (Nonreactive)
[2024-03-14 12:09] LABS: QNTFERON TB Mitogen Value > 10.00 IU/mL (.); QNTFERON TB Nil Value 0.04 IU/mL (.); QNTFERON TB1+ Ag Value 0.04 IU/mL (.); QNTFERON TB2+ Ag Value 0.03 IU/mL (.); QNTIFERON TB Positive Criteria Negative (Negative)
[2024-03-15 10:09] LABS: Hepatitis B Core Ab Total Negative (Negative)
== END | disposition home or self-care (01) ==
LOC: MTLAB 07:05
PROVIDERS: PCP Family Medicine
DX: L40.3 Pustulosis palmaris et plantaris (principal); Z79.899 Other long term (current) drug therapy
CPT/HCPCS: 36415; 80048; 80061; 80076; 85025; 86480; 86703; 86704; 86706; 86803; 87340; 87536

== ENCOUNTER 2024-07-10 12:15 | Inpatient (IN) | payer BC, MEDICARE, SELFPAY ==
[2024-07-10] VITALS (7 sets, daily range): BP systolic 121–168; BP diastolic 65–101; PULSE 80–91; RESP 14–18; TEMP 35.7–36.8; O2SAT 96–100; BMI 29.6
--- NOTE | 2024-07-10 13:20 | CT_ITS ---
STUDY: CT ABDOMEN AND PELVIS WITH CONTRAST REASON FOR EXAM: Female, 53 years old. Constipation, assess for obstruction, has gastric sleeve, hx-crohns RADIATION DOSAGE (If Supplied By Facility): CTDIvol = ( 9.86 ) mGy, DLP = ( 673.45 ) mGycm TECHNIQUE: IV 100mL Isovue-370 was administered. Transaxial images were obtained from the dome of the diaphragm to the symphysis pubis. Multiplanar coronal and sagittal images were reformatted. The protocol utilizes one or more of the following dose reduction techniques: automated exposure control, adjustment of mA and/or kV according to patient size,and/or use of iterative reconstruction technique. COMPARISON: No relevant prior comparison study available FINDINGS: The visualized portions of lung bases demonstrate minimal left lower lobe atelectatic changes. The visualized portions of the heart are within normal limits. Normal liver. There are surgical clips in the gallbladder fossa consistent with a prior cholecystectomy. Normal spleen. Normal pancreas. Normal bilateral adrenal glands. Surgical clips in the region of the stomach consistent with history of gastric sleeve. Mildly dilated fluid-filled and gas-filled small bowel loops. Surgical anastomosis sutures in the region of the sigmoid colon is again seen. Ventral hernia at the level of the umbilicus containing part of the sigmoid colon. The ascending colon is not clearly identified. There is non-visualization of the appendix. Normal abdominal aorta. No retroperitoneal adenopathy. Normal right kidney. Normal left kidney. Normal urinary bladder. There is absence of the uterus consistent with a prior hysterectomy. Normal abdominal wall. Mild depression of L1 vertebra probably chronic. No demonstrated acute osseous changes. CT/Abdomen/Pelvis W IV Cont ONLY IMPRESSION: 1. Postoperative changes in the sigmoid colon. 2. Ventral hernia containing part of the sigmoid colon without evidence of obstruction at this time. 3. Nonspecific mildly distended fluid and gas-filled small bowel loops difficult to accurately evaluate without oral contrast. If clinically indicated, follow-up examination with oral contrast might be of value. 4. Status post gastric sleeve. Electronically Signed: Oren Friedman MD at 15:00 EST ,
--- NOTE | 2024-07-10 13:27 | EDS_ITS ---
HPI History of Present Illness Chief Complaint: Abd Pain Narrative Narrative: Chief complaint and HPI: Constipation and concern for bowel obstruction . 53-year-old female with history of Crohn's disease not on any Biologics, hypothyroidism presents for evaluation of constipation and concern for bowel obstruction. 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 She states she used to be on Remicade but no longer is. She also has a history of a gastric sleeve. Patient states she usually has 5-6 bowel movements a day. She states for the last several days she has been constipated. She endorses nausea and bloating. Little p.o. intake secondary to symptoms. She saw her PCP yesterday who ordered a abdominal x-ray. Concern was for possible bowel obstruction and patient was sent to the emergency department. She denies any fever, chills, vomiting, dysuria. Associated symptom is mild abdominal pain. Review of systems: See HPI Medications: As listed on the chart Allergies: As listed on the chart PFSH: Per chart Vital signs: As listed on the chart. Reviewed. Physical exam: Gen: A&O x3, NAD Head: Normocephalic, atraumatic Eyes: No sclera icterus, conjunctiva clear ENT: Moist mucous membranes Neck: Trachea midline, No JVD CV: RRR, no murmurs, no peripheral edema Resp: Lungs CTA BL, no w/r/c GI: Abd soft, mildly distended, non-tender, no r/r/g Musc: Full ROM, no deformity Skin: Warm, dry Neuro: Alert, oriented, grossly intact, sensation intact Psych: Cooperative, appropriate mood and affect [facility] Medical History CD (Crohn's disease) Depression Hypothyroid Home Medications ?Medication ?Instructions ?Recorded ?Last Taken ?Type bupropion HCl 300 mg 24 hr tablet, 300 mg PO DAILY DEPRESSION 11/30/18 Unknown History extended release esomeprazole magnesium 40 mg 40 mg PO DAILY GERD 11/30/18 12/07/18 History capsule,delayed release (Nexium) hydrocodone 10 mg-acetaminophen 1 ea PO TID PRN PRN Pain 11/30/18 Unknown History 325 mg tablet infliximab 100 mg intravenous mg IV X1 crohns 11/30/18 Unknown History solution (Remicade) levothyroxine 75 mcg tablet 75 mcg PO DAILY HYPOTHYROID 11/30/18 12/07/18 History trazodone 50 mg tablet 50 mg PO QHS SLEEP 11/30/18 Unknown History venlafaxine 150 mg 150 mg PO DAILY DEPRESSION 11/30/18 Unknown History capsule,extended release 24 hr ibuprofen 600 mg tablet 600 mg PO Q6H PRN Pain ##60 12/08/18 Unknown Rx Allergy/AdvReac Type Severity Reaction Status Date / Time prochlorperazine (From Allergy Other Verified 07/10/24 12:15 Compazine) Surgical History H/O gastric sleeve Social History Smoking Status: Former smoker EXAM Physical Exam Const Vital Signs: 07/10/24 12:15 07/10/24 14:15 Temperature 96.3 F L Temperature Source Temporal Pulse Rate 91 88 Respiratory Rate 15 18 Blood Pressure 121/101 H 168/70 H Blood Pressure Mean 107 102 Pulse Ox 100 96 Oxygen Delivery Method Room Air MDM MDM MDM Narrative Medical decision making narrative: 53-year-old female with history of Crohn's disease not on any Biologics, hypothyroidism presents for evaluation of constipation and concern for bowel obstruction. Differential diagnosis includes but is not limited to bowel obstruction, ileitis, Crohn's flare, constipation, electrolyte abnormality. NS bolus and Zofran ordered. Abdominal workup ordered including CT abdomen/pelvis. On chart review, I am unable to see the x-ray of the abdomen. Patient states she follows with GI at [facility] but does not remember the physician's name. CBC without leukocytosis or anemia. CMP relatively unremarkable without BARRY or transaminitis. Lipase unremarkable. UA negative for UTI. CT abdomen pelvis shows postoperative changes. There is a large ventral hernia without evidence of obstruction. Nonspecific mildly distended fluid and gas-filled small bowel loops difficult to accurately evaluate without contrast per radiology. Recommended follow-up CT abdomen pelvis with oral contrast. Gastric sleeve visualized. Given patient's symptoms with distended small bowel, I did consult with our general surgeon here at [facility], Dr. Harris. He personally looked at the CT abdomen pelvis and states that the patient has a small bowel obstruction with what appears to be a transition point in the right lower quadrant. He suspects likely adhesion. Given patient's history of Crohn's di sease with total colectomy patient may require surgical lysis during admission. He recommended that patient be transferred to a different facility in case colorectal surgery is needed. Patient was updated of all results and confirmed understanding the plan. She is not having any emesis. NG not placed. Will start maintenance fluids. She would like to be transferred to [facility] as this is where she had her previous surgery. I spoke to the transfer center and I spoke to general surgeon . She accepted transfer. Patient will be transferred once bed is available. She is to remain n.p.o. she confirmed understanding the plan. Impression: 1. Small bowel obstruction 2. History of Crohn's disease Lab Data Labs: Laboratory Results - last 24 hr 07/10/24 13:10 WBC 6.9 RBC 4.73 Hgb 13.9 Hct 43.2 MCV 91.3 MCH 29.4 MCHC 32.2 RDW Std Deviation 45.6 H RDW Coeff of Arley 13.3 Plt Count 376 MPV 9.3 Immature Gran % (Auto) 0.400 Neut % (Auto) 56.3 Lymph % (Auto) 35.7 Reynolds % (Auto) 5.1 Eos % (Auto) 1.9 Baso % (Auto) 0.6 Absolute Neuts (auto) 3.9 Absolute Lymphs (auto) 2.46 Nucleated RBC % 0 Sodium 140 Potassium 3.7 Chloride 101 Carbon Dioxide 34.0 H Anion Gap 4 L BUN 18 Creatinine 0.66 Estim Creat Clear Calc 87.94 Est GFR (MDRD) Af Amer 120 Est GFR (MDRD) Non-Af 99 BUN/Creatinine Ratio 27.3 H Glucose 83 Calcium 9.8 Total Bilirubin 0.40 AST 31 ALT 50 Alkaline Phosphatase 69 Total Protein 8.2 Albumin 4.3 Globulin 3.9 Albumin/Globulin Ratio 1.1 Lipase 28 Urine Color Yellow Urine Clarity Clear Urine pH 7.0 Ur Specific [place] 1.010 Urine Protein Negative Urine Glucose (UA) Normal Urine Ketones Negative Urine Occult Blood Negative Urine Nitrite Negative Urine Bilirubin Negative Urine Urobilinogen Normal Ur Leukocyte Esterase 100 H Urine RBC 0 SEEN Urine WBC 0-5 SEEN Ur Squamous Epith Cells 0-5 SEEN Urine Bacteria 0 SEEN Urine Mucus 0 SEEN Radiography Diagnostic Testing: Clinical Impression(s) from Imaging Studies Abdomen/Pelvis CT 07/10/24 13:20 IMPRESSION: 1. Postoperative changes in the sigmoid colon. 2. Ventral hernia containing part of the sigmoid colon without evidence of obstruction at this time. 3. Nonspecific mildly distended fluid and gas-filled small bowel loops difficult to accurately evaluate without oral contrast. If clinically indicated, follow-up examination with oral contrast might be of value. 4. Status post gastric sleeve. Electronically Signed: Oren Friedman MD at 15:00 EST , Discharge Plan Triage Chief Complaint: Abd Pain ED Provider: Margarito Sweet Dx/Rx/DC Orders Prescriptions: No Action trazodone 50 MG tablet 50 mg PO QHS venlafaxine 150 MG capsule 150 mg PO DAILY hydrocodone-acetaminophen 1 EACH tablet 1 ea PO TID PRN PRN (Reason: Pain) levothyroxine 75 MCG tablet 75 mcg PO DAILY esomeprazole magnesium [Nexium] 40 MG capsule 40 mg PO DAILY bupropion HCl 300 MG tablet extended release 24 hr 300 mg PO DAILY infliximab [Remicade] 100 MG/10 ML recon soln IV X1 Patient Comments: DOSAGE PER [facility] [employer] EVERY 6 WEEKS Rx Instructions: last dose november 09, 2018 ibuprofen 600 MG tablet 600 mg PO Q6H PRN (Reason: Pain) Qty: 60 1RF Primary Care Provider: Travis Washington Referrals: Travis Washington MD [Primary Care Provider] - Print Language: Malay
[2024-07-10] MEDS: 0.9% Normal Saline (1000mL) 1,000 ML 999 ML IV (13:44)
[2024-07-10 13:45] LABS: Absolute Lymphocyte Count 2.46 X10^3/uL (0.83-4.51); Absolute Neutrophil Count 3.9 X10^3/uL (2.0-7.7); Basophil# 0.04 X10^3/uL; Basophil% 0.6 % (0-1); Eosinophil# 0.13 X10^3/uL; Eosinophils% 1.9 % (0-5); Hematocrit 43.2 % (37-47); Hemoglobin 13.9 g/dL (12.0-15.0); Lymphocyte # 2.46 X10^3/ul (0.83-4.51); Lymphocyte % 35.7 % (19-41); Mean Corp Hgb Conc 32.2 g/dL (32-36); Mean Corpuscular Hgb 29.4 pg (27.0-32.0); Mean Corpuscular Volume 91.3 fL (81-99); Mean Platelet Vol. 9.3 fl (6.2-12.0); Monocyte# 0.35 X10^3/uL; Monocyte% 5.1 % (0-10); NRBC Flagged by Analyzer 0 % (0-5); Neutrophil # 3.89 X10^3/uL (2.7-7.7); Neutrophil % 56.3 % (47-70); Platelet Count 376 K/mm3 (150-450); RBC Distribution Width CV 13.3 % (11.6-14.6); RBC Distribution Width SD 45.6 fl (35.1-43.9); Red Blood Count 4.73 M/mm3 (4.2-5.4); White Blood Count 6.9 K/mm3 (4.4-11.0)
[2024-07-10] MEDS: Ondansetron 4 MG/2 ML Vial IV ×2 (13:45→17:56)
[2024-07-10 13:59] LABS: Bacteria 0 SEEN /hpf (None Seen); Mucous, Urine 0 SEEN /hpf (<or=2+); Red Blood Cells-Urine 0 SEEN /hpf (0-5)
[2024-07-10 14:01] LABS: Color, Urine Yellow (Yellow); Glucose, Dipstick Normal (Normal); Ketone-Dipstick Negative (Negative); Leukocyte Esterase-Dipstick 100 /ul (Negative); Nitrite-Dipstick Negative (Negative); Occult Blood-Urine Negative /ul (Negative); Protein-Dipstick Negative (Negative); Urine Bilirubin Dipstick Negative (Negative); Urine Clarity Clear (Clear); Urine Urobilinogen Normal (Normal)
[2024-07-10 14:05] LABS: ALB/GLOB Ratio 1.1 RATIO (0.9-2.4); AST(SGOT) 31 U/L (15-37); Alanine Aminotransfer ALT/SGPT 50 U/L (13-56); Albumin, Serum 4.3 g/dL (3.2-5.0); Alkaline Phosphatase 69 U/L (45-117); Anion Gap 4 (5-15); BUN 18 mg/dL (7-18); BUN/Creat Ratio 27.3 RATIO (10-20); Calcium,Total 9.8 mg/dL (8.5-10.1); Chloride 101 mmol/L (98-107); Creatinine, Serum 0.66 mg/dL (0.55-1.02); EST Glomerular Filtration Rate 99 mL/min (>60); Est Glom Filt Rate - Afr Amer 120 mL/min (>60); Estimated Creatinine Clearance 87.94 ml/min; Globulin 3.9 g/dL (2.2-4.2); Glucose 83 mg/dL (74-106); Lipase 28 U/L (13-75); Potassium 3.7 mmol/L (3.5-5.1); Protein, Total 8.2 g/dL (6.4-8.2); Sodium Level 140 mmol/L (136-145)
[2024-07-10 14:08] LABS: Squamous Epithelial Cells - UA 0-5 SEEN /hpf (5-10); White Blood Cells 0-5 SEEN /hpf (0-5)
[2024-07-10] MEDS: 0.9% Normal Saline (1000mL) 1,000 ML 100 ML IV (15:55)
--- NOTE | 2024-07-10 16:37 | ED.RN ---
ACCEPTED AT 1600 WAITING ON BED ASSIGNEMNT
--- NOTE | 2024-07-10 17:48 | ED.RN ---
CALLED BACK @ 1744 FOR BED UPDATE NO BED AVAILABLE RIGHT NOW. SAID THERE WONT BE ONE TONIGHT.
[2024-07-10] MEDS: Ketorolac 15 MG/ML Vial IV (17:58)
--- NOTE | 2024-07-10 23:47 | PCM.HP.STD ---
[facility] - General General Date of Admission: 07/11/24 Date of Service: 07/10/24 Chief Complaint: Abdominal Pain and Constipation. HPI Narrative LÓPEZ DEMPSEY, is a 53 F with a past medical history of hypothyroidism; on levothyroxine, overweight; with BMI of 29.7 this admission, history of gastric sleeve, former history of tobacco abuse, history of Crohn's disease; s/p total colectomy (previously on Remicade but no longer is on any biologic agent) with additional arthritis and eye disease related to Crohn's disease, GERD; on esomeprazole and depression; on bupropion, trazodone and venlafaxine who presents to [facility] ER complaining of abdominal pain and constipation. She states she typically has ~5-6 bowel movements per day but she has noticed worsening constipation over the past several days. She also admits to nausea and bloating with decreased appetite and significantly diminished oral intake secondary to her worsening symptoms. She also admits to mild generalized abdominal pain with mild, hyperactive bowel sounds and only 1 episode of flatus since arrival but no BM for the past 2 days. She then went to see her PCP yesterday who ordered an abdominal x-ray with concern for possible evolving small bowel obstruction so patient was directed to come to the emergency department for further evaluation and treatment. She denies associated fever, chills, vomiting, dysuria, chest pain, shortness of breath or headache. In the ER the patient was noted to have CT evidence of postoperative changes in the sigmoid colon, ventral hernia repair containing part of the sigmoid colon without evidence obstruction at this time and nonspecific mildly distended fluid and gas-filled small bowel loops difficult to accurately evaluate without oral contrast with suspicion for SBO along with history of gastric sleeve. The CT scans were then evaluated by the general surgeon on-call who stated he suspected patient had a small bowel obstruction and what appears to be a transition point in the RLQ with suspected likely adhesions given patient's history of Crohn's disease with a total colectomy patient may require surgical lysis during admission likely requiring colorectal surgery consultation which is not available at this hospital. A call was then made to [facility] with general surgeon Dr. Avitia accepting patient in transfer once a bed becomes available. However, since the patient has been in the ER for more than 6 hours this hospital's policy is to call the medicine service/hospitalist to manage patients while they await transfer to tertiary care centers even with primarily surgical problems. She was then admitted to the general medical floor for ongoing care for stay that is expected to extend beyond 2 midnights. [facility] Medical History (Updated 07/11/24 @ 00:[address] Hernan Larose DO) Hypothyroid Depression CD (Crohn's disease) Home Medications ?Medication ?Instructions ?Recorded ?Last Taken ?Type bupropion HCl 300 mg 24 hr tablet, 300 mg PO DAILY DEPRESSION 11/30/18 Unknown History extended release esomeprazole magnesium 40 mg 40 mg PO DAILY GERD 11/30/18 12/07/18 History capsule,delayed release (Nexium) levothyroxine 75 mcg tablet 75 mcg PO DAILY HYPOTHYROID 11/30/18 12/07/18 History trazodone 50 mg tablet 50 mg PO QHS SLEEP 11/30/18 Unknown History venlafaxine 150 mg 225 mg PO DAILY DEPRESSION 11/30/18 Unknown History capsule,extended release 24 hr Allergy/AdvReac Type Severity Reaction Status Date / Time prochlorperazine (From Allergy Other Verified 07/10/24 12:15 Compazine) Surgical History (Updated 07/11/24 @ 00:48 by Debbie Sheppard) History of colectomy H/O gastric sleeve Social History Smoking Status: Former smoker ROS ROS Narrative Review of Systems: Constitutional: Patient denies fever or chills. Eyes: Patient denies changes in vision or discharge from eyes. ENT: Patient denies runny nose, sore throat or ear pain. Resp: Patient denies shortness of breath or cough. CV: Patient denies chest pain, palpitations or heart racing. GI: Patient admits to abdominal pain with nausea and bloating with progressively worsening constipation but she denies vomiting as per HPI. : Patient denies dysuria or hematuria. MSK: Patient denies arthralgias or myalgias. Skin: Patient denies rash, abscess or jaundice. Psych: Patient denies symptoms of uncontrolled depression or anxiety. Neuro: Patient denies headache, paresthesias or focal neurologic deficits. Allergy: Patient denies lip swelling, tongue swelling or urticaria. Hematology: Patient denies easy bleeding or easy bruisability. Endocrinology: Patient denies polyuria, polydipsia or polyphagia. 14 point review of systems otherwise negative except for positives noted above in HPI. Vital Signs Vital Signs Vital Signs: 07/10/24 12:15 07/10/24 14:15 07/10/24 16:13 Temperature 96.3 F L Temperature Source Temporal Pulse Rate 91 88 91 Respiratory Rate 15 18 16 Blood Pressure 121/101 H 168/70 H 149/80 H Blood Pressure Mean 107 102 103 Pulse Ox 100 96 100 Oxygen Delivery Method Room Air Room Air 07/10/24 18:00 07/10/24 20:00 07/10/24 22:00 Temperature 98.2 F Temperature Source Oral Pulse Rate 80 84 84 Respiratory Rate 14 17 18 Blood Pressure 148/76 H 142/66 H 139/65 H Blood Pressure Mean 100 91 89 Pulse Ox 100 99 97 Oxygen Delivery Method Room Air Room Air Room Air 07/10/24 23:29 Temperature 98.2 F Temperature Source Pulse Rate 85 Respiratory Rate 16 Blood Pressure 138/74 H Blood Pressure Mean 95 Pulse Ox 97 Oxygen Delivery Method Weight Weight: 157 lb Body Mass Index (BMI) 29.6 Physical Exam Const alert, oriented x3, no apparent distress and average body habitus General Appearance: cooperative HEENT normocephalic, head/scalp atraumatic, hearing grossly normal bilaterally and moist oral mucous membranes Eyes PERRL and EOMs intact bilaterally Neck no lymphadenopathy and supple Resp normal respiratory effort, no retractions, no use of accessory muscles and clear to auscultation bilaterally Cardio regular rate and regular rhythm GI normal to inspection, nondistended, normoactive bowel sounds and soft to palpation GI Narrative: Mild distention noted with abdomen soft no signs of rebound tenderness or guarding. Extremity normal to inspection, full ROM and no clubbing, cyanosis or edema Skin Skin Narrative: Patient has no evidence of rash, abscess or jaundice. Neuro oriented x3, CN's II-XII intact bilaterally, moves all extremities and no focal motor deficits Sensorium / Orientation: awake, alert, oriented to person, oriented to place and oriented to time Speech: speech normal Psych affect normal Results Medical Records Data Attestation: I reviewed the patient's medical records Lab / Micro Data Attestation: I reviewed the patient's lab results. 07/11/24 04:16 07/11/24 04:16 Labs: Laboratory Results - last 24 hr 07/10/24 13:10: WBC 6.9, RBC 4.73, Hgb 13.9, Hct 43.2, MCV 91.3, MCH 29.4, MCHC 32.2, RDW Std Deviation 45.6 H, RDW Coeff of Arley 13.3, Plt Count 376, MPV 9.3, Immature Gran % (Auto) 0.400, Neut % (Auto) 56.3, Lymph % (Auto) 35.7, [place] % (Auto) 5.1, Eos % (Auto) 1.9, Baso % (Auto) 0.6, Absolute Neuts (auto) 3.9, Absolute Lymphs (auto) 2.46, Nucleated RBC % 0, Sodium 140, Potassium 3.7, Chloride 101, Carbon Dioxide 34.0 H, Anion Gap 4 L, BUN 18, Creatinine 0.66, Estim Creat Clear Calc 87.94, Est GFR (MDRD) Af Amer 120, Est GFR (MDRD) Non-Af 99, BUN/Creatinine Ratio 27.3 H, Glucose 83, Calcium 9.8, Total Bilirubin 0.40, AST 31, ALT 50, Alkaline Phosphatase 69, Total Protein 8.2, Albumin 4.3, Globulin 3.9, Albumin/Globulin Ratio 1.1, Lipase 28, Urine Color Yellow, Urine Clarity Clear, Urine pH 7.0, Ur Specific [place] 1.010, Urine Protein Negative, Urine Glucose (UA) Normal, Urine Ketones Negative, Urine Occult Blood Negative, Urine Nitrite Negative, Urine Bilirubin Negative, Urine Urobilinogen Normal, Ur Leukocyte Esterase 100 H, Urine RBC 0 SEEN, Urine WBC 0-5 SEEN, Ur Squamous Epith Cells 0-5 SEEN, Urine Bacteria 0 SEEN, Urine Mucus 0 SEEN Imaging Radiology Impression Abdomen/Pelvis CT 07/10/24 13:20 IMPRESSION: 1. Postoperative changes in the sigmoid colon. 2. Ventral hernia containing part of the sigmoid colon without evidence of obstruction at this time. 3. Nonspecific mildly distended fluid and gas-filled small bowel loops difficult to accurately evaluate without oral contrast. If clinically indicated, follow-up examination with oral contrast might be of value. 4. Status post gastric sleeve. Electronically Signed: Oren Friedman MD at 15:00 EST , [facility] Imaging Services [address] [place] [id number] Abdomen Single View (Portable) MR#: [id number] Acct: [id number] Name: ROSELYNLÓPEZ LEWIS Rep #: [id number] : 1970 F 53 From: Kang Davey MD PCP: Dr. Travis Washington MD Status: ADM IN Study: Abdomen Single View (Portable) Date of Exam: 07/11/24 Exam# [id number] Ordering Dr: Hernan Larose DO EXAM: XR ABDOMEN, 1 VIEW CLINICAL INDICATION: SBO TECHNIQUE: Frontal supine view of the abdomen/pelvis. COMPARISON: Abdomen pelvis CT of 07/10/2024. FINDINGS: LOWER THORAX: No acute pathology. GASTROINTESTINAL TRACT: Gas is scattered within a few nondistended small bowel loops; no abnormally distended small bowel loops are identified. Scattered gas is noted throughout the colon, extending into the rectum. 6 cm rounded collection of stool is seen within the right lower quadrant, surrounded by surgical sutures, at the site of prior sigmoid surgical anastomosis, which was demonstrated on the prior CT. Left upper quadrant surgical sutures are again noted, consistent with the history of gastric sleeve procedure. ORGANS: Unremarkable as visualized. No organomegaly. No abnormal calcifications. BONES/JOINTS: Lower lumbar facet arthritis. SOFT TISSUES: Right upper quadrant surgical clips are again noted. RAD/Abdomen Single View (Portable) IMPRESSION: Scattered gas noted within nondistended large and small bowel loops; no findings of small bowel obstruction are identified. Electronically Signed: Kang Davey MD at 7:15 EST , CC: Dr. Travis Washington MD; Dr. Hernan Larose, DO ~ Electrical Engineer Mep: Signed Assessment & Plan Assessment/Plan (1) SBO (small bowel obstruction): (2) Abdominal pain: QUALIFIERS: Abdominal location: generalized Qualified Code(s): R10.84 - Generalized abdominal pain (3) Nausea: (4) History of Crohn's disease: (5) History of colectomy: (6) H/O gastric sleeve: (7) Hypothyroid: QUALIFIERS: Hypothyroidism type: unspecified Qualified Code(s): E03.9 - Hypothyroidism, unspecified (8) Overweight (BMI 25.0-29.9): (9) GERD (gastroesophageal reflux disease): QUALIFIERS: Esophagitis presence: without esophagitis Qualified Code(s): K21.9 - Gastro-esophageal reflux disease without esophagitis PLAN: Plan 1. CT evidence of postoperative changes in the sigmoid colon, ventral hernia repair containing part of the sigmoid colon without evidence obstruction at this time and nonspecific mildly distended fluid and gas-filled small bowel loops difficult to accurately evaluate without oral contrast with suspicion for SBO along with history of gastric sleeve with general surgeon on-call who stated he suspected patient had a small bowel obstruction and what appears to be a transition point in the RLQ with suspected likely adhesions given patient's history of Crohn's disease with a total colectomy patient may require surgical lysis during admission likely requiring colorectal surgery consultation which is not available at this hospital - Admit to general medical floor until such time a bed becomes available at the [facility] with help appreciated in advance. Keep strict n.p.o. recheck KUB in a.m. to follow for possible improvement. Start Protonix 40 mg IV daily plus give IV Zofran as needed nausea and vomiting. Give ketorolac IV as needed for [id number] (level 1-5/10) pain or fever. Give morphine IV as needed for severe (level 6-10/10) pain. Patient was noted to have decreasing abdominal distention and well-controlled abdominal pain with no vomiting so no NG tube was placed at this time with AM KUB revealing no evidence of SBO currently. 2. Hypothyroidism; on levothyroxine - Give levothyroxine IV at ~50% of normal oral dose. 3. Overweight; with BMI of 29.7 this admission - Weight loss will be recommended. Check TSH. This complicates her case and may hamper recovery. 4. History of gastric sleeve - Noted. 5. Former history of tobacco abuse - Noted. 6. History of Crohn's disease; s/p total colectomy (previously on Remicade but no longer is on any biologic agent) complicated by arthritis and eye disease also attributed to Crohn's disease - Noted. 7. GERD; on esomeprazole - Continue PPI IV. 8. Depression; on bupropion, trazodone and venlafaxine - Hold these agents until patient can tolerate oral intake. Give low-dose IV lorazepam for breakthrough symptoms should they develop. 9. DVT prophylaxis - Lovenox 40 mg sq daily plus SCD's. Total time: Approximately (but not less than) 55 minutes. Charges/Coding Visit Charges Inpatient E&M: 02950 Init Hosp L2
[2024-07-11 00:47] VITALS: BMI 29.5
[2024-07-11 00:55] VITALS: BP 134/72; PULSE 72; RESP 17; TEMP 36.6; O2SAT 99
[2024-07-11 01:05] LABS: Lactic Acid 0.6 mmol/L (0.4-1.9)
[2024-07-11] MEDS: Ketorolac 15 MG/ML Vial IV ×2 (01:05→12:25)
[2024-07-11] MEDS: Ondansetron 4 MG/2 ML Vial IV ×2 (01:06→09:46)
[2024-07-11] MEDS: 0.9% Normal Saline (1000mL) 1,000 ML 100 ML IV ×2 (04:14→13:42)
[2024-07-11 04:21] VITALS: BP 115/71; PULSE 74; RESP 17; TEMP 36.6; O2SAT 100
[2024-07-11 05:41] LABS: Basophil# 0.04 X10^3/uL; Basophil% 0.8 % (0-1); Eosinophil# 0.15 X10^3/uL; Hematocrit 36.6 % (37-47); Lymphocyte % 47.9 % (19-41); Mean Corp Hgb Conc 32.8 g/dL (32-36); Mean Corpuscular Hgb 29.8 pg (27.0-32.0); Mean Corpuscular Volume 90.8 fL (81-99); Mean Platelet Vol. 9.4 fl (6.2-12.0); Monocyte# 0.37 X10^3/uL; Monocyte% 7.4 % (0-10); NRBC Flagged by Analyzer 0 % (0-5); Neutrophil # 2.04 X10^3/uL (2.7-7.7); Neutrophil % 40.7 % (47-70); Platelet Count 275 K/mm3 (150-450); RBC Distribution Width CV 13.4 % (11.6-14.6); Red Blood Count 4.03 M/mm3 (4.2-5.4)
--- NOTE | 2024-07-11 05:55 | RAD_ITS ---
EXAM: XR ABDOMEN, 1 VIEW CLINICAL INDICATION: SBO TECHNIQUE: Frontal supine view of the abdomen/pelvis. COMPARISON: Abdomen pelvis CT of 07/10/2024. FINDINGS: LOWER THORAX: No acute pathology. GASTROINTESTINAL TRACT: Gas is scattered within a few nondistended small bowel loops; no abnormally distended small bowel loops are identified. Scattered gas is noted throughout the colon, extending into the rectum. 6 cm rounded collection of stool is seen within the right lower quadrant, surrounded by surgical sutures, at the site of prior sigmoid surgical anastomosis, which was demonstrated on the prior CT. Left upper quadrant surgical sutures are again noted, consistent with the history of gastric sleeve procedure. ORGANS: Unremarkable as visualized. No organomegaly. No abnormal calcifications. BONES/JOINTS: Lower lumbar facet arthritis. SOFT TISSUES: Right upper quadrant surgical clips are again noted. RAD/Abdomen Single View (Portable) IMPRESSION: Scattered gas noted within nondistended large and small bowel loops; no findings of small bowel obstruction are identified. Electronically Signed: Kang Davey MD at 7:15 EST ,
[2024-07-11 06:17] LABS: ALB/GLOB Ratio 1.1 RATIO (0.9-2.4); AST(SGOT) 25 U/L (15-37); Alanine Aminotransfer ALT/SGPT 38 U/L (13-56); Albumin, Serum 3.4 g/dL (3.2-5.0); Alkaline Phosphatase 52 U/L (45-117); Anion Gap 2 (5-15); BUN 12 mg/dL (7-18); BUN/Creat Ratio 21.1 RATIO (10-20); Calcium,Total 8.7 mg/dL (8.5-10.1); Chloride 110 mmol/L (98-107); Creatinine, Serum 0.57 mg/dL (0.55-1.02); EST Glomerular Filtration Rate 117 mL/min (>60); Est Glom Filt Rate - Afr Amer 142 mL/min (>60); Globulin 3.1 g/dL (2.2-4.2); Glucose 77 mg/dL (74-106); Phosphorus 3.9 mg/dL (2.5-4.9); Potassium 3.8 mmol/L (3.5-5.1); Protein, Total 6.5 g/dL (6.4-8.2); Sodium Level 141 mmol/L (136-145)
[2024-07-11 07:55] VITALS: BP 114/59; PULSE 79; RESP 18; TEMP 36.8; O2SAT 100
[2024-07-11 08:13] VITALS: RESP 18; O2SAT 100
[2024-07-11] MEDS: 0.9% Saline Lock 10 ML Syringe IV ×2 (09:46→12:27)
[2024-07-11] MEDS: Pantoprazole Sodium 40 MG in 0.9% Normal Saline (100mL MB+) 100 ML 330 MG IV (09:47)
--- NOTE | 2024-07-11 11:47 | PCM.PN.HOSP ---
Subjective Subjective Doing well, no issues overnight. Denies any abdominal pain currently has some distention still but had a bowel movement and is passing gas Objective Data Objective Data Vital Signs: Vital Signs Temp Pulse Resp BP Pulse Ox O2 Del Method 98.2 F 79 18 114/59 L 100 Room Air 07/11/24 07:55 07/11/24 07:55 07/11/24 08:13 07/11/24 07:55 07/11/24 08:13 07/11/24 08:13 Oxygen Delivery Method Room Air Weight: 156 lb Body Mass Index (BMI) 29.5 Intake & Output: Intake and Output for Last 24 Hours 07/10/24 07/11/24 07/12/24 03:59 03:59 03:59 Intake Total 1000 / 1000 1110 / 1110 Output Total 700 / 700 Balance 1000 / 1000 410 / 410 Lab / Micro Data 07/11/24 04:16 07/11/24 04:16 Labs: Laboratory Results - last 24 hr 07/10/24 13:10: WBC 6.9, RBC 4.73, Hgb 13.9, Hct 43.2, MCV 91.3, MCH 29.4, MCHC 32.2, RDW Std Deviation 45.6 H, RDW Coeff of Arley 13.3, Plt Count 376, MPV 9.3, Immature Gran % (Auto) 0.400, Neut % (Auto) 56.3, Lymph % (Auto) 35.7, [place] % (Auto) 5.1, Eos % (Auto) 1.9, Baso % (Auto) 0.6, Absolute Neuts (auto) 3.9, Absolute Lymphs (auto) 2.46, Nucleated RBC % 0, Sodium 140, Potassium 3.7, Chloride 101, Carbon Dioxide 34.0 H, Anion Gap 4 L, BUN 18, Creatinine 0.66, Estim Creat Clear Calc 87.94, Est GFR (MDRD) Af Amer 120, Est GFR (MDRD) Non-Af 99, BUN/Creatinine Ratio 27.3 H, Glucose 83, Calcium 9.8, Total Bilirubin 0.40, AST 31, ALT 50, Alkaline Phosphatase 69, Total Protein 8.2, Albumin 4.3, Globulin 3.9, Albumin/Globulin Ratio 1.1, Lipase 28, Urine Color Yellow, Urine Clarity Clear, Urine pH 7.0, Ur Specific [place] 1.010, Urine Protein Negative, Urine Glucose (UA) Normal, Urine Ketones Negative, Urine Occult Blood Negative, Urine Nitrite Negative, Urine Bilirubin Negative, Urine Urobilinogen Normal, Ur Leukocyte Esterase 100 H, Urine RBC 0 SEEN, Urine WBC 0-5 SEEN, Ur Squamous Epith Cells 0-5 SEEN, Urine Bacteria 0 SEEN, Urine Mucus 0 SEEN 07/11/24 00:35: Lactic Acid 0.6 07/11/24 04:16: WBC 5.0, RBC 4.03 L, Hgb 12.0, Hct 36.6 L, MCV 90.8, MCH 29.8, MCHC 32.8, RDW Std Deviation 45.0 H, RDW Coeff of Arley 13.4, Plt Count 275, MPV 9.4, Immature Gran % (Auto) 0.200, Neut % (Auto) 40.7 L, Lymph % (Auto) 47.9 H, [place] % (Auto) 7.4, Eos % (Auto) 3.0, Baso % (Auto) 0.8, Absolute Neuts (auto) 2.0, Absolute Lymphs (auto) 2.40, Nucleated RBC % 0, Sodium 141, Potassium 3.8, Chloride 110 H, Carbon Dioxide 29.0, Anion Gap 2 L, BUN 12, Creatinine 0.57, Estim Creat Clear Calc 101.50, Est GFR (MDRD) Af Amer 142, Est GFR (MDRD) Non-Af 117, BUN/Creatinine Ratio 21.1 H, Glucose 77, Calcium 8.7, Phosphorus 3.9, Magnesium 2.0, Total Bilirubin 0.40, AST 25, ALT 38, Alkaline Phosphatase 52, Total Protein 6.5, Albumin 3.4, Globulin 3.1, Albumin/Globulin Ratio 1.1, TSH 1.440 Radiography Diagnostic Testing: Radiology Impression Abdomen/Pelvis CT 07/10/24 13:20 IMPRESSION: 1. Postoperative changes in the sigmoid colon. 2. Ventral hernia containing part of the sigmoid colon without evidence of obstruction at this time. 3. Nonspecific mildly distended fluid and gas-filled small bowel loops difficult to accurately evaluate without oral contrast. If clinically indicated, follow-up examination with oral contrast might be of value. 4. Status post gastric sleeve. Electronically Signed: Oren Friedman MD at 15:00 EST , KUB X-Ray 07/11/24 05:55 IMPRESSION: Scattered gas noted within nondistended large and small bowel loops; no findings of small bowel obstruction are identified. Electronically Signed: Kang Davey MD at 7:15 EST , Physical Exam Narrative General: Alert, Oriented x3, Cooperative, No apparent distress HEENT: Atraumatic, PERRLA, EOMI, Normocephalic Oral: Moist Mucosa Neck: Supple, No JVD Lungs: Clear to auscultation, Normal air movement, No rhonchi, No wheeze, No rales Cardiovascular: Regular rate, Regular Rhythm, Normal S1, Normal S2, No murmurs Abdomen: Soft, Non Tender, Non-Distended, No Hepato-splenomegaly Extremities: No edema, Capillary Refill Less than 3 Seconds Skin: No rashes, No breakdown Musculoskeletal: No Tenderness to Palpation of Joints or Extremities Neurological: No focal neurological deficits, Motor Exam 5/5 strength throughout, Sensory exam intact to light touch and pain Psych/Mental Status: Normal Affect, Appropriate Assessment & Plan Assessment/Plan (1) SBO (small bowel obstruction): (2) History of Crohn's disease: PLAN: Plan 1. Small bowel obstruction in the setting of previous colectomy and gastric sleeve and hysterectomy ? She had a bowel movement today will advance to full liquids ? She is pending transfer to [facility] given that her most of her surgical procedures were done which we will continue with if she continues to have signs and symptoms of small bowel obstruction with advancement in diet ? Continue with antinausea medications ? Will hold narcotics for now 2. Hypothyroidism ? Stable ? Continue Synthroid 3. Anxiety/depression ? Stable ? Continue with her home medications DVT: Lovenox Charges/Coding Visit Charges Inpatient E&M: 68131 Subs Hosp L2
--- NOTE | 2024-07-11 11:59 | CASEMGMT ---
RN CM NOTE: Noted pt is awaiting tx to [facility]. Initial RN CM assessment deferred at this time. CM will be available for any needs that may arise. Anabela TAMEZN RN CM
[2024-07-11 14:27] VITALS: BP 150/87; PULSE 80; RESP 16; TEMP 36.7; O2SAT 98
--- NOTE | 2024-07-11 15:54 | CASEMGMT ---
RN ROSIE spoke with pt as dc physical therapy assistant unable to locate in network facilities. Pt states she has had surgeries by [facility] with this current insurance plan and she knows it is in network. Pt states that is why they won't touch me here. Pt plan is to trf to [facility] when bed becomes available.
--- NOTE | 2024-07-11 16:31 | NURSING ---
All documentation by student nurse Nicole Parsons reviewed by nursing consultant Celine Alexander BSN, RN.
--- NOTE | 2024-07-11 19:14 | DCINST_ITS ---
Discharge Instructions Diet Discharge Diet: Light diet - advance as tolerated DC O2, CPAP, BIPAP needs Home O2 Discharge instructions: No Dressing / Incision Discharge Activity: Return to Normal Activity Dressing / Incision Call your doctor if you observe: Fever of 101 or Higher, Inability to have a bowel movement, Shortness of breath, Dizziness, Fainting spells, Swelling in the ankles, Chest pain and Increased palpitations (irregular heartbeat) Follow Up Care Test Results: Test results from this visit will be discussed in further detail at your follow- up appointment, if applicable. Discharge Plan Admission Admit Date/Time: 07/11/24 00:19 Attending Provider: Mono Juárez Primary Care Provider: Travis Washington Consulting Providers: Hernan Larose Instructions Patient Instructions: Small Bowel Obstruction Discharge Orders/Prescriptions Prescriptions: Continued trazodone 50 MG tablet 50 mg PO QHS venlafaxine 150 MG capsule 225 mg PO DAILY levothyroxine 75 MCG tablet 75 mcg PO DAILY esomeprazole magnesium [Nexium] 40 MG capsule 40 mg PO DAILY bupropion HCl 300 MG tablet extended release 24 hr 300 mg PO DAILY Referrals / Follow Up: Travis Washington MD [Primary Care Provider] - Within 1 Week Disposition Disposition (needs filled in before D/C Order can be placed): Home, Self Care
--- NOTE | 2024-07-11 19:16 | PCM.DC.SUM ---
Providers Date of Admission: 07/11/24 Primary Care Physician: Dr. Travis Washington MD Reason For Visit: SBO Diagnosis Discharge Diagnosis (1) SBO (small bowel obstruction): Status: Acute Code(s): K56.609 - Unspecified intestinal obstruction, unspecified as to partial versus complete obstruction (2) History of Crohn's disease: Status: Acute Code(s): Z87.19 - Personal history of other diseases of the digestive system Medications at Discharge Home Medications bupropion HCl 300 mg 24 hr tablet, extended release 300 mg PO DAILY DEPRESSION 11/30/18 esomeprazole magnesium 40 mg capsule,delayed release (Nexium) 40 mg PO DAILY GERD 11/30/18 levothyroxine 75 mcg tablet 75 mcg PO DAILY HYPOTHYROID 11/30/18 trazodone 50 mg tablet 50 mg PO QHS SLEEP 11/30/18 venlafaxine 150 mg capsule,extended release 24 hr 225 mg PO DAILY DEPRESSION 11/30/18 Hospital Course Operations None Procedures None Summary of Care Provided Minutes Spent on Discharge: 37 Hospital Course: Per HPI: LÓPEZ DEMPSEY, is a 53 F with a past medical history of hypothyroidism; on levothyroxine, overweight; with BMI of 29.7 this admission, history of gastric sleeve, former history of tobacco abuse, history of Crohn's disease; s/p total colectomy (previously on Remicade but no longer is on any biologic agent) with additional arthritis and eye disease related to Crohn's disease, GERD; on esomeprazole and depression; on bupropion, trazodone and venlafaxine who presents to [facility] ER complaining of abdominal pain and constipation. She states she typically has ~5-6 bowel movements per day but she has noticed worsening constipation over the past several days. She also admits to nausea and bloating with decreased appetite and significantly diminished oral intake secondary to her worsening symptoms. She also admits to mild generalized abdominal pain with mild, hyperactive bowel sounds and only 1 episode of flatus since arrival but no BM for the past 2 days. She then went to see her PCP yesterday who ordered an abdominal x-ray with concern for possible evolving small bowel obstruction so patient was directed to come to the emergency department for further evaluation and treatment. She denies associated fever, chills, vomiting, dysuria, chest pain, shortness of breath or headache. In the ER the patient was noted to have CT evidence of postoperative changes in the sigmoid colon, ventral hernia repair containing part of the sigmoid colon without evidence obstruction at this time and nonspecific mildly distended fluid and gas-filled small bowel loops difficult to accurately evaluate without oral contrast with suspicion for SBO along with history of gastric sleeve. The CT scans were then evaluated by the general surgeon on-call who stated he suspected patient had a small bowel obstruction and what appears to be a transition point in the RLQ with suspected likely adhesions given patient's history of Crohn's disease with a total colectomy patient may require surgical lysis during admission likely requiring colorectal surgery consultation which is not available at this hospital. A call was then made to [facility] with general surgeon Dr. Avitia accepting patient in transfer once a bed becomes available. However, since the patient has been in the ER for more than 6 hours this hospital's policy is to call the medicine service/hospitalist to manage patients while they await transfer to tertiary care centers even with primarily surgical problems. She was then admitted to the general medical floor for ongoing care for stay that is expected to extend beyond 2 midnights. Hospital Course: 1. Small bowel obstruction the setting of previous colectomy and gastric sleeve and hysterectomy?53-year-old female presented to the hospital the first episode of small bowel obstruction. KUB today was unremarkable and she had a bowel movement. Abdominal pain had resolved and her nausea had improved so she was advanced to a full liquid diet. She tolerated full liquid diet for breakfast, lunch, and dinner without any nausea or abdominal pain. I discussed with her the possibility for discharge today and she and her expressed understanding of the risks and benefits of going home and would like to go home today. We discussed dietary modifications in the immediate discharge period and when to come back to the hospital. 2. Hypothyroidism, anxiety, depression on chronic medical conditions which complicate her care. Her home medications were continued where appropriate Physical Exam Narrative General: Alert, Oriented x3, Cooperative, No apparent distress HEENT: Atraumatic, PERRLA, EOMI, Normocephalic Oral: Moist Mucosa Neck: Supple, No JVD Lungs: Clear to auscultation, Normal air movement, No rhonchi, No wheeze, No rales Cardiovascular: Regular rate, Regular Rhythm, Normal S1, Normal S2, No murmurs Abdomen: Soft, Non Tender, Non-Distended, No Hepato-splenomegaly Extremities: No edema, Capillary Refill Less than 3 Seconds Skin: No rashes, No breakdown Musculoskeletal: No Tenderness to Palpation of Joints or Extremities Neurological: No focal neurological deficits, Motor Exam 5/5 strength throughout, Sensory exam intact to light touch and pain Psych/Mental Status: Normal Affect, Appropriate Weight / BMI Weight Weight: 156 lb Body Mass Index (BMI) 29.5 ABG / Lab / Microbiology Data 07/11/24 04:16 07/11/24 04:16 Laboratory: Laboratory Results - last 24 hr 07/11/24 00:35: Lactic Acid 0.6 07/11/24 04:16: WBC 5.0, RBC 4.03 L, Hgb 12.0, Hct 36.6 L, MCV 90.8, MCH 29.8, MCHC 32.8, RDW Std Deviation 45.0 H, RDW Coeff of Arley 13.4, Plt Count 275, MPV 9.4, Immature Gran % (Auto) 0.200, Neut % (Auto) 40.7 L, Lymph % (Auto) 47.9 H, [place] % (Auto) 7.4, Eos % (Auto) 3.0, Baso % (Auto) 0.8, Absolute Neuts (auto) 2.0, Absolute Lymphs (auto) 2.40, Nucleated RBC % 0, Sodium 141, Potassium 3.8, Chloride 110 H, Carbon Dioxide 29.0, Anion Gap 2 L, BUN 12, Creatinine 0.57, Estim Creat Clear Calc 101.50, Est GFR (MDRD) Af Amer 142, Est GFR (MDRD) Non-Af 117, BUN/Creatinine Ratio 21.1 H, Glucose 77, Calcium 8.7, Phosphorus 3.9, Magnesium 2.0, Total Bilirubin 0.40, AST 25, ALT 38, Alkaline Phosphatase 52, Total Protein 6.5, Albumin 3.4, Globulin 3.1, Albumin/Globulin Ratio 1.1, TSH 1.440 Radiography Diagnostic Testing: Radiology Impression KUB X-Ray 07/11/24 05:55 IMPRESSION: Scattered gas noted within nondistended large and small bowel loops; no findings of small bowel obstruction are identified. Electronically Signed: Kang Davey MD at 7:15 EST , D/C Instructions Discharge Diet: Light diet - advance as tolerated Call your doctor if you observe: Fever of 101 or Higher, Inability to have a bowel movement, Shortness of breath, Dizziness, Fainting spells, Swelling in the ankles, Chest pain and Increased palpitations (irregular heartbeat) DC O2, CPAP, BIPAP Needs Home O2 Discharge instructions: No Meaningful Use Info Meaningful Use Meaningful Use Diagnoses (Choose all that apply): None applicable Ischemic Stroke Statin Dosing Therapy Reference: STATIN DOSE THERAPY REFERENCE: * Patients > 75 years receive moderate or high dose statin therapy. * Patients 75 years or YOUNGER should receive HIGH intensity statin dose unless contraindicated. You will be required to document reason for non-treatment if statin daily dose does not meet guidelines. HIGH DOSE STATIN THERAPY DAILY Atorvastatin > than or = to 40 mg Rosuvastatin > than or = to 20 mg Amlodipine + Atorvastatin > than or = to 2.5/40 mg Ezetimibe + Simvastatin 10/80 mg Simvastatin 80mg Discharge Plan Admission Admit Date/Time: 07/11/24 00:19 Attending Provider: Mono Juárez Primary Care Provider: Travis Washington Consulting Providers: Hernan Larose Instructions Patient Instructions: Small Bowel Obstruction Discharge Orders/Prescriptions Prescriptions: Continued trazodone 50 MG tablet 50 mg PO QHS venlafaxine 150 MG capsule 225 mg PO DAILY levothyroxine 75 MCG tablet 75 mcg PO DAILY esomeprazole magnesium [Nexium] 40 MG capsule 40 mg PO DAILY bupropion HCl 300 MG tablet extended release 24 hr 300 mg PO DAILY Referrals / Follow Up: Travis Washington MD [Primary Care Provider] - Within 1 Week Disposition Disposition (needs filled in before D/C Order can be placed): Home, Self Care Charges/Coding Visit Charges Inpatient E&M: 19426 Disch Hosp >30min
[2024-07-11 20:23] VITALS: BP 97/58; PULSE 72; RESP 16; TEMP 36.6; O2SAT 100
== END 2024-07-11 20:25 | disposition home or self-care (01) | DRG 390 ==
LOC: ED 13:48 → MS3 07-11 00:44
PROVIDERS: Admitting Provider Internal Medicine; Emergency Provider Surgery; PCP Family Medicine; Visit Provider Family Medicine
DX: K56.609 Unspecified intestinal obstruction, unspecified as to partial versus complete obstruction (principal); E03.9 Hypothyroidism, unspecified; F32.A Depression, unspecified; K21.9 Gastro-esophageal reflux disease without esophagitis; K43.9 Ventral hernia without obstruction or gangrene; E66.3 Overweight; Z68.29 Body mass index [BMI] 29.0-29.9, adult; Z87.891 Personal history of nicotine dependence; R10.84 Generalized abdominal pain; Z87.19 Personal history of other diseases of the digestive system; Z79.890 Hormone replacement therapy; Z98.84 Bariatric surgery status; Z90.49 Acquired absence of other specified parts of digestive tract
CPT/HCPCS: 36415; 74018; 74177; 80053; 81001; 83605; 83690; 83735; 84100; 84443; 85025; 94668; 99284; Q9967; A4216; J2405

== ENCOUNTER → 2024-11-30 | Outpatient (CLI) | payer BC, SELFPAY ==
[2024-11-30 12:55] LABS: Hemoglobin A1c 5.5 % (<=5.6)
[2024-11-30 13:19] LABS: ALB/GLOB Ratio 1.7 RATIO (0.9-2.4); AST(SGOT) 25 U/L (<=31); Alanine Aminotransfer ALT/SGPT 29 U/L (<=34); Albumin, Serum 4.4 g/dL (3.5-5.0); Alkaline Phosphatase 53 U/L (35-104); Anion Gap 10 (5-15); BUN 12 mg/dL (4-19); BUN/Creat Ratio 21.2 RATIO (10-20); Calcium,Total 9.8 mg/dL (7.6-11.0); Chloride 105 mmol/L (98-108); Cholesterol 211 mg/dL (<=200); Creatinine, Serum 0.56 mg/dL (0.70-1.20); EST Glomerular Filtration Rate 108 (>60); Globulin 2.6 g/dL (2.2-4.2); Glucose 80 mg/dL (70-99); High Density Lipoprotein 72 mg/dL; Low Density Lipoprotein Calc. 124 mg/dL; Potassium 4.8 mmol/L (3.3-5.1); Sodium Level 142 mmol/L (133-145); Total Bilirubin 0.24 mg/dL (0.00-1.30); Triglycerides 73 mg/dL; Very Low Density Lipoprotein 15 mg/dL (5-40); cholesterol:hdl ratio screen 2.92
== END | disposition home or self-care (01) ==
LOC: BIMLAB 08:09
PROVIDERS: PCP Family Medicine; Referring Provider Nurse Practitioner Primary Care; Visit Provider Nurse Practitioner Primary Care
DX: Z00.00 Encounter for general adult medical examination without abnormal findings (principal); E66.3 Overweight; E03.9 Hypothyroidism, unspecified; Z13.220 Encounter for screening for lipoid disorders
CPT/HCPCS: 36415; 80053; 80061; 83036; 84443

== ENCOUNTER → 2025-04-22 | Outpatient (CLI) | payer BC, SELFPAY ==
[2025-04-22 13:07] LABS: CRP < 3.00 mg/L (0.0-3.0)
[2025-04-23 04:07] LABS: PROGESTERONE <0.1 ng/mL (.)
[2025-04-25 13:08] LABS: Estrogen, Total, Serum 57 pg/mL (40-244); Testosterone, % Free 1.40 % (0.50-2.80); Testosterone, Free <.04 ng/dL (0.10-0.85)
== END | disposition home or self-care (01) ==
PROVIDERS: PCP Nurse Practitioner Family; Visit Provider Nurse Practitioner Family
DX: N89.8 Other specified noninflammatory disorders of vagina (principal)
CPT/HCPCS: 36415; 82672; 83036; 84144; 84402; 84403; 84443; 85652; 86140

== ENCOUNTER → 2025-05-16 | Outpatient (CLI) | payer BC, SELFPAY ==
[2025-05-16 17:43] LABS: Hematocrit 38.2 % (37-47); Hemoglobin 12.4 g/dL (12.0-15.0); Immature Granulocytes Count 0.010 X10^3/uL (0.0-0.0); Mean Corp Hgb Conc 32.5 g/dL (32-36); Mean Corpuscular Volume 91.4 fL (81-99); Mean Platelet Vol. 9.2 fl (6.2-12.0); NRBC Flagged by Analyzer 0 % (0-5); Platelet Count 324 K/mm3 (150-450); RBC Distribution Width CV 12.9 % (11.6-14.6); RBC Distribution Width SD 43.0 fl (35.1-43.9); Red Blood Count 4.18 M/mm3 (4.2-5.4); White Blood Count 6.1 K/mm3 (4.4-11.0)
[2025-05-16 18:33] LABS: AST(SGOT) 26 U/L (<=31); Alanine Aminotransfer ALT/SGPT 21 U/L (<=34); Albumin, Serum 4.3 g/dL (3.5-5.0); Alkaline Phosphatase 59 U/L (35-104); Anion Gap 8 (5-15); BUN 11 mg/dL (4-19); BUN/Creat Ratio 18.3 RATIO (10-20); Calcium,Total 9.3 mg/dL (7.6-11.0); Carbon Dioxide 29.3 mmol/L (21.0-32.0); Chloride 104 mmol/L (98-108); Globulin 2.6 g/dL (2.2-4.2); Glucose 109 mg/dL (70-99); Magnesium 2.3 mg/dL (1.5-2.2); Potassium 4.5 mmol/L (3.3-5.1); Vitamin B12 1944 pg/mL (180-914); Vitamin D,25 Hydroxy 54.2 ng/mL (30-100)
== END | disposition home or self-care (01) ==
LOC: MTLAB 16:54
PROVIDERS: PCP Nurse Practitioner Family; Referring Provider Nurse Practitioner Family; Visit Provider Nurse Practitioner Family
DX: M81.0 Age-related osteoporosis without current pathological fracture (principal); K50.90 Crohn's disease, unspecified, without complications; E03.9 Hypothyroidism, unspecified; K90.9 Intestinal malabsorption, unspecified
CPT/HCPCS: 36415; 80053; 82306; 82607; 83735; 84443; 85025